=== PATIENT | male | born 1945 | race Caucasian/White ===

== ENCOUNTER 2016-08-22 15:44 | Inpatient (IN) | payer OTHER, MEDICARE ==
[~2016-08-22] VITALS: Ht 175.3 cm; Wt 81.0 kg
[2016-08-22] VITALS (8 sets, daily range): BP systolic 119–185; BP diastolic 61–105; PULSE 80–110; RESP 16–18; TEMP 97.6–99; O2SAT 90–98
--- NOTE | 2016-08-22 17:28 | PD ---
HPI Chief Complaint: General Weakness Time Seen by Provider: 17:11 Travel History International Travel<30 days: No Contact w/Intl Traveler<30days: No Traveled to known affect area: No History of Present Illness HPI 71-year-old male with history of hypertension, hypercholesterolemia, here [facility] evaluation [facility] generalized weakness and shortness of breath. The patient reports that when he woke up this morning he had symptoms of not feeling well, generalized weakness, and feeling short of breath. He states that he checked his oxygen saturation at home and reports that it was 84%. Patient also felt a little bit off balance. Here in the emergency department he feels well. No chest pain or dyspnea. No fevers or recent illness. No abdominal pain, nausea, or vomiting. No paresthesias or motor deficits. No known history of CAD. No history of DVT or PE. PFSH Past Medical History Hx Anticoagulant Therapy: Yes (81MG ASPIRIN) Arthritis: Yes Asthma: No Autoimmune Disease: No Blood Disorders: No Anxiety: No Depression: No Heart Rhythm Problems: No Cancer: No Cardiovascular Problems: Yes ("TISSUE VALVE") High Cholesterol: Yes Chemotherapy: No (CLL) Chest Pain: No Congestive Heart Failure: No COPD: No Cerebrovascular Accident: No Diabetes: Yes Patient Takes Glucophage: No Diminished Hearing: No Gastrointestinal Disorders: No GERD: No Glaucoma: No Headaches: No Hepatitis: No Hiatal Hernia: No Hypertension: Yes Kidney Stones: No Musculoskeletal: Yes Neurologic: No Psychiatric: No Respiratory: No Myocardial Infarction: No Radiation Therapy: No Renal Failure: No Seizures: No Sleep Apnea: No Thyroid Disease: No Ulcer: No Tetanus Vaccination: < 5 Years Influenza Vaccination: Yes Past Surgical History Abdominal Surgery: Yes (appendectomy) AICD: No Appendectomy: Yes Cardiac Surgery: Yes (VALVE REPLACEMENT) Ear Surgery: No Endocrine Surgery: No Eye Surgery: No Genitourinary Surgery: No Gynecologic Surgery: No Neurologic Surgery: No Oral Surgery: No Pacemaker: No Thoracic Surgery: No Other Surgery: Yes Social History Alcohol Use: No Tobacco Use: No Substance Use: No Allergies-Medications (Allergen,Severity, Reaction): Coded Allergies: No Known Allergies (Verified , 08/22/16) Review of Systems Except as stated in HPI: all other systems reviewed are Neg Physical Exam Narrative GENERAL: Well-developed, well-nourished, comfortable, no acute distress. SKIN: Focused skin assessment warm/dry. No rash. No pallor. HEAD: Atraumatic. Normocephalic. EYES: Pupils equal and round. No scleral icterus. No injection or drainage. ENT: Mucous membranes pink and moist. NECK: Trachea midline. No JVD. CARDIOVASCULAR: Regular rate and rhythm. RESPIRATORY: No accessory muscle use. Clear to auscultation. Breath sounds equal bilaterally. GASTROINTESTINAL: Abdomen soft, non-tender, nondistended. MUSCULOSKELETAL: No obvious deformities. No clubbing. No cyanosis. No edema. NEUROLOGICAL: Awake and alert. No obvious cranial nerve deficits. No focal deficits. Normal fdjvas-[id number] test bilaterally. No pronator drift. PSYCHIATRIC: Appropriate mood and affect; insight and judgment normal. Data Data Last Documented VS Vital Signs Date Time Temp Pulse Resp B/P Pulse Ox O2 Delivery O2 Flow Rate FiO2 08/22/16 17:24 83 16 167/91 94 Nasal Cannula 2 08/22/16 15:48 98.5 Orders Electrocardiogram (08/22/16 17:22) Ckmb (Isoenzyme) Profile (08/22/16 17:22) Complete Blood Count With Diff (08/22/16 17:22) Comprehensive Metabolic Panel (08/22/16 17:22) Magnesium (Mg) (08/22/16 17:22) Prothrombin Time / Inr (Pt) (08/22/16 17:22) Act Partial Throm Time (Ptt) (08/22/16 17:22) Troponin I (08/22/16 17:22) Chest, Single Ap (08/22/16 17:22) Ecg Monitoring (08/22/16 17:22) Iv Access Insert/Monitor (08/22/16 17:22) Oximetry (08/22/16 17:22) Sodium Chloride 0.9% Flush (Ns Flush) (08/22/16 17:30) Ct Brain W/O Iv Contrast(Rout) (08/22/16 ) Urinalysis - C+S If Indicated (08/22/16 17:27) Blood Culture (08/22/16 19:48) Ceftriaxone Inj (Rocephin Inj) (08/22/16 20:00) Azithromycin Inj (Zithromax Inj) (08/22/16 20:00) Labs Laboratory Tests Test 08/22/16 18:30 White Blood Count 16.9 TH/MM3 Red Blood Count 4.55 MIL/MM3 Hemoglobin 15.1 GM/DL Hematocrit 43.3 % Mean Corpuscular Volume 95.2 FL Mean Corpuscular Hemoglobin 33.1 PG Mean Corpuscular Hemoglobin 34.8 % Concent Red Cell Distribution Width 13.6 % Platelet Count 124 TH/MM3 Mean Platelet Volume 9.7 FL Neutrophils (%) (Auto) 36.9 % Lymphocytes (%) (Auto) 59.6 % Monocytes (%) (Auto) 0.6 % Eosinophils (%) (Auto) 1.9 % Basophils (%) (Auto) 1.0 % Neutrophils # (Auto) 6.2 TH/MM3 Lymphocytes # (Auto) 10.1 TH/MM3 Monocytes # (Auto) 0.1 TH/MM3 Eosinophils # (Auto) 0.3 TH/MM3 Basophils # (Auto) 0.2 TH/MM3 CBC Comment AUTO DIFF Differential Total Cells 100 Counted Neutrophils % (Manual) 45 % Band Neutrophils % 4 % Lymphocytes % 47 % Monocytes % 4 % Neutrophils # (Manual) 8.3 TH/MM3 Differential Comment FINAL DIFF MANUAL Platelet Estimate LOW Platelet Morphology Comment NORMAL Red Cell Morphology Comment NORMAL Prothrombin Time 10.7 SEC Prothromb Time International 1.0 RATIO Ratio Activated Partial 26.5 SEC Thromboplast Time Sodium Level 133 MEQ/L Potassium Level 4.0 MEQ/L Chloride Level 97 MEQ/L Carbon Dioxide Level 22.3 MEQ/L Anion Gap 14 MEQ/L Blood Urea Nitrogen 25 MG/DL Creatinine 1.27 MG/DL Estimat Glomerular Filtration 56 ML/MIN Rate Random Glucose 129 MG/DL Calcium Level 8.8 MG/DL Magnesium Level 1.7 MG/DL Total Bilirubin 2.3 MG/DL Aspartate Amino Transf 24 U/L (AST/SGOT) Alanine Aminotransferase 19 U/L (ALT/SGPT) Alkaline Phosphatase 65 U/L Total Creatine Kinase 71 U/L Troponin I LESS THAN 0.02 NG/ML Total Protein 7.9 GM/DL Albumin 3.8 GM/DL [facility] Medical Decision Making Medical Screen Exam Complete: Yes Emergency Medical Condition: Yes Interpretation(s) EKG: Ectopic atrial rhythm, rate 76, left axis deviation, normal intervals, no acute ischemic abnormality. Differential Diagnosis Metabolic abnormality, intracranial abnormality, anemia, pneumonia, pneumothorax , peritonitis, PE, UTI Narrative Course Initial vital signs show heart rate 110, blood pressure 185/105, pulse ox 97% on room air, oral temp of 98.5F. CBC shows WBC 16.9, hemoglobin 15.1, hematocrit 43.3, platelets 124, neutrophils 36.9%, lymphocytes 59.6%. Band neutrophils 4%. CMP is remarkable for sodium 133, chloride 97, BUN 25, creatinine 1.27, GFR 56, T bili 2.3, otherwise essentially unremarkable. Cardiac enzymes are negative. CT head: No acute intracranial abnormality. Paranasal sinus disease, primarily right sided. Chest x-ray: CONCLUSION: 1. Chronic appearing interstitial changes with possible superimposed infiltrate at the right base. Patient was made aware of all findings. Although he is resting comfortably, his O2 saturation is 90% on 3 L nasal cannula while at rest. Given leukocytosis with findings of pneumonia and hypoxia on clinical exam, patient will be admitted for treatment and evaluation of pneumonia and hypoxia. Patient is amenable to this plan. Case discussed with hospitalist Dr. Yuan who will admit the patient to her service. Diagnosis Primary Impression: Pneumonia Qualified Code: J18.1 - Pneumonia of right lower lobe due to infectious organism Additional Impression: Hypoxia Admitting Information Admitting Physician Requests: Admit El Celestin MD Aug 22, 2016 17:28
[2016-08-22] MEDS ORDERED: SODIUM CHLORIDE 0.9% FLUSH 10 ML FLUSH IVF PRN (17:30)
--- NOTE | 2016-08-22 17:54 | RADRPT ---
EXAM DATE/TIME: 08/22/2016 17:35 [facility] COMPARISON: No previous studies available for comparison. INDICATIONS : Low oxygen saturation [facility] by [facility]. MEDICAL HISTORY : Cardiovascular disease. SURGICAL HISTORY : valve placement ENCOUNTER: Initial ACUITY: 1 day PAIN SCORE: Non-responsive. LOCATION: Bilateral upper chest FINDINGS: The heart is enlarged. The patient is post median sternotomy. There is interstitial change with possi ble superimposed infiltrate or edema at the right lung base. The visualized bony structures are intac t. CONCLUSION: 1. Chronic appearing interstitial changes with possible superimposed infiltrate at the right base. Popeye Palacio MD on August 22, 2016 at 17:51 Board Certified Radiologist. This report was verified electronically.
--- NOTE | 2016-08-22 18:19 | RADRPT ---
EXAM DATE/TIME: 08/22/2016 17:50 [facility] COMPARISON: No previous studies available for comparison. INDICATIONS : Dizziness and hypoxia today. RADIATION DOSE: 52.90 CTDIvol (mGy) MEDICAL HISTORY : Hypertension. Cardiovascular disease diabetes SURGICAL HISTORY : None. ENCOUNTER: Initial ACUITY: 1 day PAIN SCALE: 0/10 LOCATION: Bilateral head TECHNIQUE: Multiple contiguous axial images were obtained of the head. Using automated exposure control and adj ustment of the mA and/or kV according to patient size, radiation dose was kept as low as reasonably a chievable to obtain optimal diagnostic quality images. FINDINGS: CEREBRUM: The ventricles are normal for age. No evidence of midline shift, mass lesion, hemorrhage or acute in farction. No extra-axial fluid collections are seen. POSTERIOR FOSSA: The cerebellum and brainstem are intact. The 4th ventricle is midline. The cerebellopontine angle i s unremarkable. EXTRACRANIAL: The visualized portion of the orbits is intact. There is mucoperiosteal thickening of the visualized paranasal sinuses, primarily right frontal, right ethmoid and right maxillary. SKULL: The calvaria is intact. No evidence of skull fracture. CONCLUSION: No acute intracranial abnormality. Paranasal sinus disease, primarily right-sided. Arcenio Bergeron MD on August 22, 2016 at 18:16 Board Certified Radiologist. This report was verified electronically.
[2016-08-22 19:01] LABS: AUTOMATED NEUTROPHIL # 6.2 TH/MM3 (1.8-7.7); BASOPHIL # 0.2 TH/MM3 (0-0.2); EOSINOPHIL # 0.3 TH/MM3 (0-0.4); EOSINOPHIL % 1.9 % (0.0-4.0); HEMATOCRIT 43.3 % (39.0-51.0); LYMPH % 59.6 % (9.0-44.0); LYMPHOCYTE # 10.1 TH/MM3 (1.0-4.8); MEAN CELL VOLUME 95.2 FL (80.0-100.0); MEAN CORPUSCULAR HEMOGLOBIN 33.1 PG (27.0-34.0); MEAN CORPUSCULAR HGB CONC 34.8 % (32.0-36.0); MONO % 0.6 % (0.0-8.0); NEUT % 36.9 % (16.0-70.0); PLATELET COUNT 124 TH/MM3 (150-450); RED BLOOD COUNT 4.55 MIL/MM3 (4.50-5.90); RED CELL DISTRIBUTION WIDTH 13.6 % (11.6-17.2); WHITE BLOOD COUNT 16.9 TH/MM3 (4.0-11.0)
[2016-08-22 19:07] LABS: HEMO FLAGS AUTO DIFF
[2016-08-22 19:16] LABS: ANION GAP 14 MEQ/L (5-15); AST (GOT) 24 U/L (15-37); BICARBONATE 22.3 MEQ/L (21.0-32.0); BLOOD UREA NITROGEN 25 MG/DL (7-18); CHLORIDE 97 MEQ/L (98-107); GLOMERULAR FILTRATION RATE 56 ML/MIN (>89); MAGNESIUM 1.7 MG/DL (1.5-2.5); SODIUM (NA) 133 MEQ/L (136-145)
[2016-08-22 19:23] LABS: ALKALINE PHOSPHATASE 65 U/L (45-117); ALT (GPT) 19 U/L (12-78); TOTAL BILIRUBIN ADULT 2.3 MG/DL (0.2-1.0)
[2016-08-22 19:36] LABS: APTT (PATIENT) 26.5 SEC (24.3-30.1); PROTHROMBIN TIME - PATIENT 10.7 SEC (9.8-11.6)
[2016-08-22 19:40] LABS: BANDS 4 % (0-6); NEUTROPHIL # MANUAL DIFF 8.3 TH/MM3 (1.8-7.7); PLATELET ESTIMATE SMEAR LOW (NORMAL); PLATELET MORPHOLOGY NORMAL (NORMAL); POLYS (SEG NEUTROPHILS) 45 % (16-70); SCAN/DIFF FINAL DIFF MANUAL; WBC DIFF SAMPLE 100
[2016-08-22 19:48] LABS: CREATINE KINASE 71 U/L (39-308)
[2016-08-22] MEDS ORDERED: NALOXONE HCL 0.4 MG/ML AMP IV PRN (20:00)
[2016-08-22] MEDS ORDERED: AZITHROMYCIN INJ 500 MG in SODIUM CHLOR 0.9% 250 ML INJ 250 ML IV ONE (20:00)
[2016-08-22] MEDS ORDERED: cefTRIAXone INJ 1,000 MG in SODIUM CHLORIDE 0.9% INJ 100 ML IV ONE (20:00)
[2016-08-22] MEDS ORDERED: SODIUM CHLORIDE 0.9% FLUSH 10 ML FLUSH IV FLUSH PRN (20:00)
[2016-08-22 20:29] LABS: BLOOD, URINE NEG (NEG); GLUCOSE,URINE NEG (NEG); KETONE, URINE 10 mg/dL (NEG); NITRITE,URINE NEG (NEG); URINE COLOR LIGHT-YELLOW (YELLW/STRAW)
[2016-08-22 20:32] LABS: COMMENT (UR) CULT NOT INDICATED; CULTURE IF INDICATED CULT NOT INDICATED
[2016-08-22] MEDS: SODIUM CHLORIDE 0.9% FLUSH 10 ML FLUSH IV FLUSH SCH (21:00)
--- NOTE | 2016-08-22 21:57 | EKG ---
Date Performed: 08/22/2016 Time Performed: 17:28:22 PTAGE: 71 years EKG: ECTOPIC ATRIAL RHYTHM MARKED LEFT AXIS DEVIATION ABNORMAL ECG NO SIGNIFICANT CHANGE FROM [place] IOR ELECTROCARDIOGRAM. PREVIOUS TRACING : 08/22/2016 17.27 DOCTOR: Jaylan Polanco Interpretating Date/Time 08/24/2016 07:07:21
--- NOTE | 2016-08-22 22:55 | HHI.HP ---
[facility] Admission Diagnosis pneumonia, hypoxia Diagnoses: (1) Pneumonia (2) Hypoxia Chief Complaint: shortness of breath Travel History International Travel<30 Days: No Contact w/Intl Traveler <30 Da: No Traveled to Known Affected Are: No History of Present Illness Written by Daphne Fonseca, acting as scribe for Dr. Yuan on 08/22/16 at 22:54. Mr. Otto is a 71 year-old male with a history of CLL, hypertension, mitral valve replacement - bovine, hyperlipidemia, diabetes mellitus, arthritis, and renal disease who presented to the emergency room on 08/22/2016 on recommendation of [place] clinic for evaluation of generalized weakness and shortness of breath. On chest x-ray in the ER he was noted to have infiltrate at the right base. Pulse oximetry at home showed 84% oxygen saturation; saturation was 90% on 3 L of supplemental oxygen in the ER as noted by Dr. Celestin. Patient states that he was short of breath this morning; tested oxygen saturation with partner's oximeter (partner has COPD) and it was 84% on room air. Denies cough and states SOB only started today. Denies fever, night sweats, extremity swelling, black or bloody stools, diarrhea , and hematuria (urine is orange - reports related to chronic kidney disease). Also states this morning that he was slightly imbalanced and chest was slightly uncomfortable/tight. No recent long plane or car rides. 22 years of exposure of second hand smoke exposure; Stopped getting second hand smoke 12 years ago. Reports a history of controlled diabetes mellitus, artificial mitral valve - bovine - 2003 Denies COPD/breathing problems, CAD, CHF, liver problems like hepatitis, PE, DVT , CVA, seizures, thyroid problems, cancer, and prostate problems. Current partner is HIV +, patient states he's tested negative twice Echocardiogram with patient from [place] - personally reviewed report dated 05/26/16: mild mitral regurgitation; severely dilated right atrium; EF 60-65%. . Review of Systems Except as stated in HPI: all other systems reviewed are Neg Past Family Social History Past Medical History Hypertension Hyperlipidemia Mitral valve replacement - 2003 - bovine A-fib after MVR - converted with cardioversion Diabetes mellitus Arthritis Renal disease CLL . Past Surgical History Appendectomy 1968 Mitral valve replacement - bovine - 2003 . Reported Medications Metformin 1000 twice daily Glipizide 5 mg (?) BID Simvastatin 1/2 pill daily Metoprolol 1/2 pill BID Lisinopril 1/2 pill in a.m. . Allergies: Coded Allergies: No Known Allergies (Verified , 08/22/16) Active Ordered Medications Current Medications Sodium Chloride 2 ml 2 ml UNSCH PRN IVF FLUSH AFTER USING IV ACCESS; Start 02/26 at 17:30; Stop 08/22/16 at 20:07; Status DC Ceftriaxone Sodium 1000 mg/ Sodium Chloride 100 ml @ 200 mls/hr ONCE ONCE IV Last administered on 08/22/16 20:00; Start 08/22/16 at 20:00; Stop 08/22/16 at 20:29; Status DC Azithromycin/ Sodium Chloride (Zithromax Inj/ NS 250 ml Inj) 250 ml @ 250 mls/ hr ONCE ONCE IV Last administered on 08/22/16 21:48; Start 08/22/16 at 20:00 ; Stop 08/22/16 at 20:59; Status DC Sodium Chloride (NS Flush) 2 ml UNSCH PRN IV FLUSH FLUSH AFTER USING IV ACCESS ; Start 08/22/16 at 20:00 Sodium Chloride (NS Flush) 2 ml BID IV FLUSH ; Start 08/22/16 at 21:00 Naloxone HCl (Narcan Inj) 0.4 mg UNSCH PRN IV SEE LABEL COMMENTS; Start at 20:00 . Family History Mother from dementia; had diabetes mellitus Father with Alzheimer's and heart problems . Social History Tobacco: denies smoking; 22 years of exposure of second hand smoke exposure; Stopped getting second hand smoke 12 years ago. Alcohol: denies Illicit Drugs: denies . Physical Exam Vital Signs Vital Signs Date Time Temp Pulse Resp B/P Pulse Ox O2 Delivery O2 Flow Rate FiO2 08/22/16 22:37 97.6 97 18 138/65 94 08/22/16 21:00 80 16 119/61 94 Nasal Cannula 2 08/22/16 20:15 96 08/22/16 20:15 99.0 97 18 136/89 93 Nasal Cannula 3 08/22/16 20:00 98.7 94 16 136/89 90 Nasal Cannula 2 08/22/16 17:24 83 16 167/91 94 Nasal Cannula 2 08/22/16 16:09 95 16 144/75 98 Room Air 08/22/16 15:48 98.5 110 16 185/105 97 Physical Exam GENERAL: This is a well-nourished, well-developed patient, in no apparent distress. SKIN: No rashes, ecchymoses or lesions. Cool and dry. HEAD: Atraumatic. Normocephalic. EYES: No scleral icterus. No injection or drainage. ENT: Nose without bleeding, purulent drainage. NECK: Trachea midline. No JVD or lymphadenopathy. CARDIOVASCULAR: Regular rate and rhythm without gallops or rubs. Heart murmur auscultated. RESPIRATORY: Light crepitations throughout lung azul. Breath sounds equal bilaterally. No wheezes or rhonchi. GASTROINTESTINAL: Abdomen soft, non-tender, nondistended. No guarding. MUSCULOSKELETAL: Extremities without clubbing, cyanosis, or edema. No calf tenderness. NEUROLOGICAL: Awake and alert. Motor and sensory grossly within normal limits. Normal speech. . Laboratory Laboratory Tests Test 08/22/16 08/22/16 18:30 19:55 White Blood Count 16.9 Red Blood Count 4.55 Hemoglobin 15.1 Hematocrit 43.3 Mean Corpuscular Volume 95.2 Mean Corpuscular Hemoglobin 33.1 Mean Corpuscular Hemoglobin 34.8 Concent Red Cell Distribution Width 13.6 Platelet Count 124 Mean Platelet Volume 9.7 Neutrophils (%) (Auto) 36.9 Lymphocytes (%) (Auto) 59.6 Monocytes (%) (Auto) 0.6 Eosinophils (%) (Auto) 1.9 Basophils (%) (Auto) 1.0 Neutrophils # (Auto) 6.2 Lymphocytes # (Auto) 10.1 Monocytes # (Auto) 0.1 Eosinophils # (Auto) 0.3 Basophils # (Auto) 0.2 CBC Comment AUTO DIFF Differential Total Cells 100 Counted Neutrophils % (Manual) 45 Band Neutrophils % 4 Lymphocytes % 47 Monocytes % 4 Neutrophils # (Manual) 8.3 Differential Comment FINAL DIFF MANUAL Platelet Estimate LOW Platelet Morphology Comment NORMAL Red Cell Morphology Comment NORMAL Prothrombin Time 10.7 Prothromb Time International 1.0 Ratio Activated Partial 26.5 Thromboplast Time Sodium Level 133 Potassium Level 4.0 Chloride Level 97 Carbon Dioxide Level 22.3 Anion Gap 14 Blood Urea Nitrogen 25 Creatinine 1.27 Estimat Glomerular Filtration 56 Rate Random Glucose 129 Calcium Level 8.8 Magnesium Level 1.7 Total Bilirubin 2.3 Aspartate Amino Transf 24 (AST/SGOT) Alanine Aminotransferase 19 (ALT/SGPT) Alkaline Phosphatase 65 Total Creatine Kinase 71 Troponin I LESS THAN 0.02 Total Protein 7.9 Albumin 3.8 Urine Color LIGHT-YELLOW Urine Turbidity CLEAR Urine pH 5.0 Urine Specific [place] 1.011 Urine Protein TRACE Urine Glucose (UA) NEG Urine Ketones 10 Urine Occult Blood NEG Urine Nitrite NEG Urine Bilirubin NEG Urine Urobilinogen LESS THAN 2.0 Urine Leukocyte Esterase NEG Urine RBC 1 Urine WBC 1 Microscopic Urinalysis Comment CULT NOT INDICATED Date/Time Procedure Status Source Growth 08/22/16 21:25 Aerobic Blood Culture Received Blood Peripheral Pending 08/22/16 21:25 Anaerobic Blood Culture Received Blood Peripheral Pending Result Diagram: 08/22/16 1830 08/22/16 1830 Imaging Last Impressions Chest X-Ray 08/22/16 1722 Signed Impressions: Service Date/Time: Monday, August 22, 2016 17:35 - CONCLUSION: 1. Chronic appearing interstitial changes with possible superimposed infiltrate at the right base. Popeye Palacio MD Head CT 08/22/16 0000 Signed Impressions: Service Date/Time: Monday, August 22, 2016 17:50 - CONCLUSION: No acute intracranial abnormality. Paranasal sinus disease, primarily right-sided. Arcenio Bergeron MD . Assessment and Plan Problem List: (1) Pneumonia ICD Code: J18.9 Status: Acute (2) Hypoxia ICD Code: R09.02 Status: Acute (3) CLL (chronic lymphocytic leukemia) ICD Code: C91.10 Status: Chronic Assessment and Plan Mr. Otto is a 71 year-old male who presented to the emergency room on 08/22/16 for evaluation of generalized weakness and shortness of breath. On chest x-ray in the ER he was noted to have infiltrate at the right base. Pulse oximetry at home showed 84% oxygen saturation; saturation was 90% on 3 L of supplemental oxygen in the ER as noted by Dr. Celestin. Hypoxic respiratory failure with pneumonia - Levaquin 750 mg IV q24h - Check serial cardiac enzymes and EKGs to rule out ACS - Consult physical therapy to prevent further debility - Continuous cardiac telemetry to monitor for arrhythmias - Monitor vital signs every 4 hours - Consult pulmonology - appreciate assistance with interstitial lung disease, newly diagnosed CLL with leukocytosis - most likely secondary to pneumonia - WBC 16.9 (was 12 on last [place] blood work reviewed in room during exam) with elevated lymphocytes secondary to CLL - Recheck CBC in a.m. and follow trends DVT prophylaxis - Lovenox 40 mg subq q24 hours of note, Echocardiogram with patient from [place] - personally reviewed report dated 05/26/16: mild mitral regurgitation; severely dilated right atrium; EF 60- 65%. . Discussed Condition With ER physician, patient, RN . Physician Certification 2 Midnight Certification Type: Admission for Inpatient Services Order for Inpatient Services The services are ordered in accordance with Medicare regulations or non- Medicare payer requirements, as applicable. In the case of services not specified as inpatient-only, they are appropriately provided as inpatient services in accordance with the 2-midnight benchmark. Estimated LOS (days): 3 days is the estimated time the patient will need to remain in the hospital, assuming treatment plan goals are met and no additional complications. Post-Hospital Plan: Home Problem Qualifiers (1) Pneumonia: Qualified Code: J18.1 - Pneumonia of right lower lobe due to infectious organism Daphne Fonseca Aug 22, 2016 22:55
[2016-08-23] MEDS ORDERED: DEXTROSE 50% IN WATER 50 ML VIAL(D50) IV PRN (02:00)
[2016-08-23] MEDS ORDERED: GLUCAGON 1 MG/ML VIAL OTHER PRN (02:00)
[2016-08-23] MEDS ORDERED: METF1000 PO (02:55)
[2016-08-23] MEDS ORDERED: PILL SPLITTER OTHER PRN (04:15)
[2016-08-23 04:46] VITALS: BP 106/62; PULSE 90; RESP 18; TEMP 96.6; O2SAT 92
[2016-08-23] MEDS: INSULIN ASPART SUPPLEMENTAL SCALE SQ SCH ×4 (05:24→20:48)
[2016-08-23 06:56] LABS: AUTOMATED NEUTROPHIL # 4.4 TH/MM3 (1.8-7.7); BASOPHIL % 0.2 % (0.0-2.0); EOSINOPHIL % 0.3 % (0.0-4.0); HEMATOCRIT 37.2 % (39.0-51.0); LYMPH % 58.1 % (9.0-44.0); LYMPHOCYTE # 6.3 TH/MM3 (1.0-4.8); MEAN CORPUSCULAR HGB CONC 33.4 % (32.0-36.0); MONO % 1.2 % (0.0-8.0); NEUT % 40.2 % (16.0-70.0); PLATELET COUNT 113 TH/MM3 (150-450); RED BLOOD COUNT 3.87 MIL/MM3 (4.50-5.90); RED CELL DISTRIBUTION WIDTH 13.6 % (11.6-17.2); WHITE BLOOD COUNT 10.9 TH/MM3 (4.0-11.0)
[2016-08-23 06:57] LABS: HEMO FLAGS AUTO DIFF
[2016-08-23 07:15] LABS: BICARBONATE 25.9 MEQ/L (21.0-32.0); POTASSIUM 3.7 MEQ/L (3.5-5.1)
--- NOTE | 2016-08-23 07:51 | EKG ---
Date Performed: 08/23/2016 Time Performed: 05:41:46 PTAGE: 71 years EKG: Possible ectopic atrial rhythm MARKED LEFT AXIS DEVIATION ABNORMAL ECG NO SIGNIFICANT GOMES E FROM PRIOR ELECTROCARDIOGRAM. PREVIOUS TRACING : 08/23/2016 01.07 DOCTOR: Jaylan Polanco Interpretating Date/Time 08/23/2016 07:49:30
--- NOTE | 2016-08-23 07:52 | EKG ---
Date Performed: 08/23/2016 Time Performed: 01:07:51 PTAGE: 71 years EKG: Ectopic atrial rhythm MARKED LEFT AXIS DEVIATION ABNORMAL ECG NO SIGNIFICANT CHANGE FROM [place] IOR ELECTROCARDIOGRAM. PREVIOUS TRACING : 08/22/2016 17.28 DOCTOR: Jaylan Polanco Interpretating Date/Time 08/23/2016 07:52:25
[2016-08-23 08:00] VITALS: BP 120/66; PULSE 84; RESP 20; TEMP 98.3; O2SAT 94
[2016-08-23] MEDS: LISINOPRIL 5 MG TAB PO SCH (08:20)
[2016-08-23] MEDS: LEVOFLOXACIN 750 MG PREMIX INJ 150 ML IV SCH (08:20)
[2016-08-23] MEDS: METOPROLOL TARTRATE 25 MG TAB PO SCH ×2 (08:21→20:44)
[2016-08-23] MEDS: SODIUM CHLORIDE 0.9% FLUSH 10 ML FLUSH IV FLUSH SCH ×2 (08:21→20:48)
[2016-08-23] MEDS: ENOXAPARIN SODIUM 40 MG/0.4 ML SYRINGE SQ SCH (08:21)
[2016-08-23 08:54] LABS: ATYPICAL LYMPHOCYTES 13 % (0-0); BANDS 5 % (0-6); EOSINOPHILS 1 % (0-4); NEUTROPHIL # MANUAL DIFF 4.5 TH/MM3 (1.8-7.7); POLYS (SEG NEUTROPHILS) 36 % (16-70); WBC DIFF SAMPLE 100
[2016-08-23 08:55] LABS: PLATELET ESTIMATE SMEAR LOW (NORMAL); PLATELET MORPHOLOGY NORMAL (NORMAL); SCAN/DIFF FINAL DIFF MANUAL; SMUDGE CELLS PRESENT PRESENT
[2016-08-23 12:55] VITALS: BP 108/64; PULSE 81; RESP 20; TEMP 97.8; O2SAT 97
--- NOTE | 2016-08-23 14:14 | HHI.PR ---
Subjective Remarks patient very active, sputum - minimal whitish, no fever or chills non smoker presented with acute shortness of breath- hypoxemic on presentation non smoker Objective Vitals Vital Signs Date Time Temp Pulse Resp B/P Pulse Ox O2 Delivery O2 Flow Rate FiO2 08/23/16 12:55 97.8 81 20 108/64 97 08/23/16 08:00 98.3 84 20 120/66 94 08/23/16 04:46 96.6 90 18 106/62 92 08/22/16 23:25 103 08/22/16 22:37 97.6 97 18 138/65 94 08/22/16 21:00 80 16 119/61 94 Nasal Cannula 2 08/22/16 20:15 96 08/22/16 20:15 99.0 97 18 136/89 93 Nasal Cannula 3 08/22/16 20:00 98.7 94 16 136/89 90 Nasal Cannula 2 08/22/16 17:24 83 16 167/91 94 Nasal Cannula 2 08/22/16 16:09 95 16 144/75 98 Room Air 08/22/16 15:48 98.5 110 16 185/105 97 I/O 08/22/16 08/22/16 08/22/16 08/23/16 08/23/16 08/23/16 07:00 15:00 23:00 07:00 15:00 23:00 Intake Total 280 ml Balance 280 ml Intake IV Total 280 ml Result Diagram: 08/23/16 0626 08/23/16 0626 Imaging Last Impressions Chest X-Ray 08/22/16 1722 Signed Impressions: Service Date/Time: Monday, August 22, 2016 17:35 - CONCLUSION: 1. Chronic appearing interstitial changes with possible superimposed infiltrate at the right base. Popeye Palacio MD Head CT 08/22/16 0000 Signed Impressions: Service Date/Time: Monday, August 22, 2016 17:50 - CONCLUSION: No acute intracranial abnormality. Paranasal sinus disease, primarily right-sided. Arcenio Bergeron MD Objective Remarks awake and alert, NAD, Sats improved on 2 LNC anciteric fine rales on right base, no wheezes regular rhythm abdomen soft, nontender extremities no edema neuro exam- non focal A/P Problem List: (1) Pneumonia ICD Code: J18.9 Status: Acute (2) Hypoxia ICD Code: R09.02 Status: Acute (3) CLL (chronic lymphocytic leukemia) ICD Code: C91.10 Status: Chronic Assessment and Plan Mr. Otto is a 71 year-old male who presented to the emergency room on 08/22/16 for evaluation of generalized weakness and acute shortness of breath. On chest x -ray with interstitial lung changes and noted to have infiltrate at the right base. Pulse oximetry at home showed 84% oxygen saturation; saturation was 90% on 3 L of supplemental oxygen in the ER as noted by Dr. Celestin. Acute Hypoxic respiratory failure with pneumonia/infiltrate on CXR - Sats 95% at 2LNC- Leukocytosis - Pulmonology consulted with interstitial lung changes- non smoker - Levaquin 750 mg IV q24h - Check serial cardiac enzymes and EKGs - unreamrkabel - Consult physical therapy to prevent further debility - Continuous cardiac telemetry to monitor for arrhythmias - Monitor vital signs every 4 hours - will get stat D dimer- if + proceed with CTA- due to acuity of SOB CLL with acute leukocytosis - - WBC 16.9 (was 12 on last [place] blood work reviewed in room during exam) with elevated lymphocytes secondary to CLL - trended down on antibiotics Acute [place] injury- gentle hydration. ff BMP - History of MVR- Echocardiogram with patient from [place] - personally reviewed report dated 05/26/16: mild mitral regurgitation; severely dilated right atrium; EF 60-65%. DVT prophylaxis - Lovenox 40 mg subq q24 hours . Problem Qualifiers (1) Pneumonia: Qualified Code: J18.1 - Pneumonia of right lower lobe due to infectious organism Jie Lombardi MD Aug 23, 2016 14:14
[2016-08-23] MEDS: SODIUM CHLOR 0.9% 1000 ML INJ 1,000 ML IV SCH (15:00)
[2016-08-23 16:49] VITALS: BP 128/62; PULSE 94; RESP 20; TEMP 99.1; O2SAT 97
--- NOTE | 2016-08-23 19:32 | MB ---
cc: SAUL TAY DATE OF CONSULTATION 08/23/[address] Yuan REASON FOR CONSULTATION Shortness of breath and lung infiltrate. HISTORY OF PRESENT ILLNESS Mr. Otto is a 71-year-old white male with history of hypertension, mitral valve replacement, CLL, diabetes mellitus. The patient came with one day history of shortness of breath. He says he woke up and he feeling generalized weakness. He checked his oxygen saturation which was 84. He called her [facility] and was told to go to the emergency room and was told to go to the emergency room. The patient was evaluated in the emergency room. He had a chest x-ray done which shows chronic interstitial changes with possible superimposed infiltrate in the lung. His WBC count is 10.9, hemoglobin 12.4, hematocrit 37.2, MCV 96, platelet count 113. Sodium 130, potassium 3.7, chloride 97, CO2 25, BUN 24, creatinine 1.39, glucose 236. Currently he is feeling much better. He is weaned down to room air, saturation is 97. PAST MEDICAL HISTORY 1. History of hypertension, 2. Mitral valve replacement with a bovine valve 3. CLL 4. Diabetes mellitus, 5. Arthritis. 6. Appendectomy MEDICATIONS Currently taking 1. Lovenox 40 mg q. 24-hour 2. Levaquin 750 mg a day 3. Metoprolol 12.5 q 2 hr. 4. Prinivil 2.5 mg daily ALLERGIES NO KNOWN DRUG ALLERGIES. SOCIAL HISTORY He lives with his main partner for the last 36 years. No significant alcohol abuse. 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 FAMILY HISTORY He has two brother and one sister. No children. REVIEW OF SYSTEMS Normally he is up, around and active. Weight is stable. No malignancy. No DVT or pulmonary embolism. No seizure, stroke or epilepsy. PHYSICAL EXAMINATION General: A well-nourished elderly male not in acute distress. VITAL SIGNS: Blood pressure 128/62, heart rate 94, respiration 20, Temperature 99.1 HEENT: Pupils are equal and reactive to light. Oral mucosa and nasal mucosa normal. NECK: Supple. JVP not raised. CHEST: Equal bilaterally. He has rales at the right base. CARDIOVASCULAR: S1, S2 normal. ABDOMEN: Benign. EXTREMITIES: No edema. IMPRESSION 1. Interstitial lung infiltrate. 2. hypoxia, rule out pulmonary embolism. 3. Mitral valve replacement with a bovine valve. 4. Diabetes mellitus 5. Hypertension 6. CLL. PLAN I discussed with the patient. He is going to go for a CTA of the chest which will also evaluate pulmonary embolism as well as interstitial lung disease. I will check his pulmonary function study, blood gas and we will check oxygen walk test to determine the need for home oxygen therapy. Further treatment will depend on the course in the hospital. Thank you, Dr. Yuan, for this consultation. MD JOLLY Donaldson/ /6:51 PM /7:14 PM MTDJaneen
[2016-08-23] MEDS ORDERED: IOHEXOL 350 MG/ML 10 ML VIAL (for RAD DIAG) IV ONE (19:33)
--- NOTE | 2016-08-23 19:47 | RADRPT ---
EXAM DATE/TIME: 08/23/2016 19:17 [place] COMPARISON: CHEST SINGLE AP, August 22, 2016, 17:35. INDICATIONS : Evaluate for embolism. IV CONTRAST: 71 cc Omnipaque 350 (iohexol) IV RADIATION DOSE: 12.59 CTDIvol (mGy) MEDICAL HISTORY : Cardiovascular disease. SURGICAL HISTORY : Mitral valve replacement. ENCOUNTER: Initial ACUITY: 1 day PAIN SCALE: 3/10 LOCATION: Bilateral chest TECHNIQUE: Volumetric scanning of the chest was performed using a pulmonary embolism protocol MIP images were re constructed. Using automated exposure control and adjustment of the mA and/or kV according to patien t size, radiation dose was kept as low as reasonably achievable to obtain optimal diagnostic quality images. FINDINGS: The moderate right and small left pleural effusions are present with dependent consolidation of both bases. There is patchy pneumonia posteriorly in the right upper and lower lobes and to a lesser exten t, right middle and left lower lobe. Some of the right pleural fluid is in the major fissure. No pulmonary embolus. Heart size normal. There is coronary artery calcification, both right and left-sided. Mitral valve prosthesis noted. There is a 18 x 32 mm subcarinal mediastinal lymph node and scattered 1 cm or less lymph nodes e lsewhere in the mediastinum. A few lymph nodes measuring up to 17 mm in size are seen of both oksana. CONCLUSION: 1. No pulmonary embolus. 2. Bilateral pneumonia as above. 3. Moderate right and small left pleural effusions with dependent basilar atelectasis. 4. Upper limits of normal to mildly enlarged mediastinal and bilateral hilar lymph nodes, nonspecific . Arcenio Bergeron MD on August 23, 2016 at 19:42 Board Certified Radiologist. This report was verified electronically.
[2016-08-23 20:22] VITALS: BP 144/77; PULSE 110; RESP 18; TEMP 99.5; O2SAT 91
[2016-08-23 21:15] VITALS: PULSE 111
[2016-08-24] VITALS (8 sets, daily range): BP systolic 104–141; BP diastolic 58–74; PULSE 80–101; RESP 17–20; TEMP 97.6–99.7; O2SAT 92–99
[2016-08-24] MEDS ORDERED: diphenhydrAMINE HCL 50 MG CAP PO ONE
[2016-08-24] MEDS: SODIUM CHLOR 0.9% 1000 ML INJ 1,000 ML IV SCH (02:55)
[2016-08-24] MEDS: INSULIN ASPART SUPPLEMENTAL SCALE SQ SCH ×4 (06:21→20:44)
[2016-08-24] MEDS: ENOXAPARIN SODIUM 40 MG/0.4 ML SYRINGE SQ SCH (08:55)
[2016-08-24] MEDS: SODIUM CHLORIDE 0.9% FLUSH 10 ML FLUSH IV FLUSH SCH ×2 (08:56→20:41)
[2016-08-24] MEDS: LEVOFLOXACIN 750 MG PREMIX INJ 150 ML IV SCH (08:56)
[2016-08-24] MEDS: LISINOPRIL 5 MG TAB PO SCH (08:56)
[2016-08-24] MEDS: METOPROLOL TARTRATE 25 MG TAB PO SCH ×2 (08:56→20:41)
[2016-08-24 11:56] LABS: BICARBONATE 27.2 MEQ/L (21.0-32.0); POTASSIUM 4.3 MEQ/L (3.5-5.1)
--- NOTE | 2016-08-24 16:24 | HHI.PR ---
Subjective Remarks decrease sputum feeling better ambulated around hallways- slowly on 02 no diarreha Objective Vitals Vital Signs Date Time Temp Pulse Resp B/P Pulse Ox O2 Delivery O2 Flow Rate FiO2 08/24/16 12:30 84 08/24/16 12:00 97.6 94 19 110/66 98 08/24/16 09:05 Nasal Cannula 3.00 08/24/16 08:48 95 2.00 08/24/16 08:48 99.0 101 18 141/72 95 08/24/16 05:00 Nasal Cannula 3.00 Humidified 08/24/16 04:00 97.9 99 18 124/72 92 08/24/16 00:27 98.9 95 20 125/74 92 08/23/16 21:15 111 08/23/16 20:22 99.5 110 18 144/77 91 08/23/16 16:49 99.1 94 20 128/62 97 I/O 08/23/16 08/23/16 08/23/16 08/24/16 08/24/16 08/24/16 07:00 15:00 23:00 07:00 15:00 23:00 Intake Total 280 ml 960 ml 600 ml 600 ml 420 ml Output Total 500 ml Balance 280 ml 960 ml 100 ml 600 ml 420 ml Intake Oral 960 ml 600 ml 600 ml IV Total 280 ml 420 ml Output Urine Total 500 ml # Voids 8 3 # Bowel Movements 2 1 1 Result Diagram: 08/23/16 0626 08/24/16 [address] Angiography 08/23/16 0000 Signed Impressions: Service Date/Time: Tuesday, August 23, 2016 19:17 - CONCLUSION: 1. No pulmonary embolus. 2. Bilateral pneumonia as above. 3. Moderate right and small left pleural effusions with dependent basilar atelectasis. 4. Upper limits of normal to mildly enlarged mediastinal and bilateral hilar lymph nodes, nonspecific. Arcenio Bergeron MD Chest X-Ray 08/22/16 1722 Signed Impressions: Service Date/Time: Monday, August 22, 2016 17:35 - CONCLUSION: 1. Chronic appearing interstitial changes with possible superimposed infiltrate at the right base. Popeye Palacio MD Head CT 08/22/16 0000 Signed Impressions: Service Date/Time: Samuel, August 22, 2016 17:50 - CONCLUSION: No acute intracranial abnormality. Paranasal sinus disease, primarily right-sided. Arcenio Bergeron MD Objective Remarks awake and alert, NAD, Sats improved on 2 LNC anicteric no rales no wheezes regular rhythm abdomen soft, nontender extremities no edema neuro exam- non focal A/P Problem List: (1) Pneumonia ICD Code: J18.9 Status: Acute (2) Hypoxia ICD Code: R09.02 Status: Acute (3) CLL (chronic lymphocytic leukemia) ICD Code: C91.10 Status: Chronic Assessment and Plan Mr. Otto is a 71 year-old male who presented to the emergency room on 08/22/16 for evaluation of generalized weakness and acute shortness of breath. On chest x -ray with interstitial lung changes and noted to have infiltrate at the right base. Pulse oximetry at home showed 84% oxygen saturation; saturation was 90% on 3 L of supplemental oxygen in the ER as noted by Dr. Celestin. Acute Hypoxic respiratory failure with pneumonia/infiltrate on CXR - Sats 95% at 2LNC- Leukocytosis - WBC down - Pulmonology consulted with interstitial lung changes- non smoker - Levaquin 750 mg IV q24h- change to po in am if continues to improve - Check serial cardiac enzymes and EKGs - unreamrkabel -physical therapy to prevent further debility - Continuous cardiac telemetry to monitor for arrhythmias - Monitor vital signs every 4 hours - CTA negative for PE CLL with acute leukocytosis - - WBC 16.9 (was 12 on last [place] blood work reviewed in room during exam) with elevated lymphocytes secondary to CLL - trended down on antibiotics Acute KIdney injury- gentle hydration. ff BMP- recgeck in am - History of MVR- Echocardiogram with patient from [place] - personally reviewed report dated 05/26/16: mild mitral regurgitation; severely dilated right atrium; EF 60-65%. DM type 2- elevated readings as OP on Metformin and Glyburide - start Glyburide. states his last A1C was 7 DVT prophylaxis - Lovenox 40 mg subq q24 hours CM consult for DC planning . Problem Qualifiers (1) Pneumonia: Qualified Code: J18.1 - Pneumonia of right lower lobe due to infectious organism Jie Lombardi MD Aug 24, 2016 16:24
--- NOTE | 2016-08-24 18:49 | HHI.PR ---
Subjective Remarks 71 YOWM with SOB.Hypoxia, Int lung infilt CTA No PE, small pl eff, bilat infilt no fever Anxious to go home. Objective Vital Signs Vital Signs Date Time Temp Pulse Resp B/P Pulse Ox O2 Delivery O2 Flow Rate FiO2 08/24/16 16:00 98.6 88 18 104/58 99 08/24/16 12:30 84 08/24/16 12:00 97.6 94 19 110/66 98 08/24/16 09:05 Nasal Cannula 3.00 08/24/16 08:48 95 2.00 08/24/16 08:48 99.0 101 18 141/72 95 08/24/16 05:00 Nasal Cannula 3.00 Humidified 08/24/16 04:00 97.9 99 18 124/72 92 08/24/16 00:27 98.9 95 20 125/74 92 08/23/16 21:15 111 08/23/16 20:22 99.5 110 18 144/77 91 I/O 08/23/16 08/23/16 08/23/16 08/24/16 08/24/16 08/24/16 07:00 15:00 23:00 07:00 15:00 23:00 Intake Total 280 ml 960 ml 600 ml 600 ml 1380 ml Output Total 500 ml Balance 280 ml 960 ml 100 ml 600 ml 1380 ml Intake Oral 960 ml 600 ml 600 ml 960 ml IV Total 280 ml 420 ml Output Urine Total 500 ml # Voids 8 3 4 # Bowel Movements 2 1 1 1 Result Diagram: 08/23/16 0626 08/24/16 1048 Objective Remarks GENERAL: WBWN WM, NAD SKIN: Warm and dry. HEAD: Normocephalic. EYES: No scleral icterus. No injection or drainage. NECK: Supple, trachea midline. No JVD or lymphadenopathy. CARDIOVASCULAR: Regular rate and rhythm without murmurs, gallops, or rubs. RESPIRATORY: Breath sounds equal bilaterally. No accessory muscle use. GASTROINTESTINAL: Abdomen soft, non-tender, nondistended. MUSCULOSKELETAL: No cyanosis, or edema. BACK: Nontender without obvious deformity. No CVA tenderness. A/P Assessment and Plan Bilat infilt Hpoxia, resolved no PE Small Pleural effusion DM PLAN: Cont Abx Wean off 02 Monitor BS Ambulate Giovanni Garcia MD Aug 24, 2016 18:49
[2016-08-24] MEDS: glipiZIDE 5 MG TAB PO SCH (19:05)
[2016-08-25] VITALS: BP 124/67; PULSE 82; RESP 18; TEMP 96.5; O2SAT 96
[2016-08-25] MEDS: SODIUM CHLOR 0.9% 1000 ML INJ 1,000 ML IV SCH (02:55)
[2016-08-25 04:00] VITALS: BP 123/73; PULSE 82; RESP 18; TEMP 96.8; O2SAT 95
[2016-08-25] MEDS: INSULIN ASPART SUPPLEMENTAL SCALE SQ SCH ×3 (05:36→17:40)
[2016-08-25] MEDS: LISINOPRIL 5 MG TAB PO SCH (07:37)
[2016-08-25] MEDS: METOPROLOL TARTRATE 25 MG TAB PO SCH (07:37)
[2016-08-25] MEDS: LEVOFLOXACIN 750 MG PREMIX INJ 150 ML IV SCH (07:37)
[2016-08-25] MEDS: ENOXAPARIN SODIUM 40 MG/0.4 ML SYRINGE SQ SCH (07:39)
[2016-08-25] MEDS: glipiZIDE 5 MG TAB PO SCH ×2 (07:40→17:38)
[2016-08-25] MEDS: SODIUM CHLORIDE 0.9% FLUSH 10 ML FLUSH IV FLUSH SCH (07:41)
[2016-08-25 08:00] VITALS: BP 115/61; PULSE 84; RESP 20; TEMP 96.6; O2SAT 95
[2016-08-25 11:47] LABS: ANION GAP 11 MEQ/L (5-15); BICARBONATE 24.3 MEQ/L (21.0-32.0); BLOOD UREA NITROGEN 23 MG/DL (7-18); CHLORIDE 99 MEQ/L (98-107); GLOMERULAR FILTRATION RATE 58 ML/MIN (>89); POTASSIUM 4.1 MEQ/L (3.5-5.1); SODIUM (NA) 134 MEQ/L (136-145)
[2016-08-25 12:00] VITALS: BP 106/61; PULSE 81; RESP 20; TEMP 96.6; O2SAT 96
[2016-08-25 13:45] VITALS: PULSE 96
[2016-08-25 16:00] VITALS: BP 103/60; PULSE 88; RESP 20; TEMP 97.7; O2SAT 95
[2016-08-25 16:35] LABS: HEMOGLOBIN A1a 1.1 %; HEMOGLOBIN A1b 0.9 %; HEMOGLOBIN Ao 81.6 %; HEMOGLOBIN F 1.2 %; HEMOGLOBIN LA1C 3.2 %; HEMOGLOBIN P3 4.8 %
--- NOTE | 2016-08-25 16:56 | HHI.PR ---
Subjective Remarks patient doing very well no chest pains or shortness of breath minimal cough good sats at room air- ambulating 96% Objective Vitals Vital Signs Date Time Temp Pulse Resp B/P Pulse Ox O2 Delivery O2 Flow Rate FiO2 08/25/16 16:00 97.7 88 20 103/60 95 08/25/16 13:45 96 08/25/16 12:31 96 Room Air 08/25/16 12:00 96.6 81 20 106/61 96 08/25/16 10:36 92 Nasal Cannula 3.00 08/25/16 08:00 96.6 84 20 115/61 95 08/25/16 04:00 96.8 82 18 123/73 95 08/25/16 00:00 96.5 82 18 124/67 96 08/24/16 21:05 Nasal Cannula 3.00 08/24/16 21:05 80 08/24/16 20:00 99.7 92 17 117/68 93 I/O 08/24/16 08/24/16 08/24/16 08/25/16 08/25/16 08/25/16 07:00 15:00 23:00 07:00 15:00 23:00 Intake Total 600 ml 1380 ml 480 ml Balance 600 ml 1380 ml 480 ml Intake Oral 600 ml 960 ml 480 ml IV Total 420 ml # Voids 3 4 # Bowel Movements 1 1 Result Diagram: 08/23/16 0626 08/25/[address] Angiography 08/23/16 0000 Signed Impressions: Service Date/Time: Tuesday, August 23, 2016 19:17 - CONCLUSION: 1. No pulmonary embolus. 2. Bilateral pneumonia as above. 3. Moderate right and small left pleural effusions with dependent basilar atelectasis. 4. Upper limits of normal to mildly enlarged mediastinal and bilateral hilar lymph nodes, nonspecific. Arcenio Bergeron MD Chest X-Ray 08/22/16 1722 Signed Impressions: Service Date/Time: Monday, August 22, 2016 17:35 - CONCLUSION: 1. Chronic appearing interstitial changes with possible superimposed infiltrate at the right base. Popeye Palacio MD Head CT 08/22/16 0000 Signed Impressions: Service Date/Time: Monday, August 22, 2016 17:50 - CONCLUSION: No acute intracranial abnormality. Paranasal sinus disease, primarily right-sided. Arcenio Bergeron MD Objective Remarks awake and alert, NAD, Sats good on room air anicteric no rales no wheezes regular rhythm abdomen soft, nontender extremities no edema neuro exam- non focal A/P Problem List: (1) Pneumonia ICD Code: J18.9 Status: Acute (2) Hypoxia ICD Code: R09.02 Status: Acute (3) CLL (chronic lymphocytic leukemia) ICD Code: C91.10 Status: Chronic Assessment and Plan Mr. Otto is a 71 year-old male who presented to the emergency room on 08/22/16 for evaluation of generalized weakness and acute shortness of breath. On chest x -ray with interstitial lung changes and noted to have infiltrate at the right base. Pulse oximetry at home showed 84% oxygen saturation; saturation was 90% on 3 L of supplemental oxygen in the ER as noted by Dr. Celestin. Acute Hypoxic respiratory failure with pneumonia/infiltrate on CXR - Sats 95% at 2LNC- Leukocytosis - WBC down - Pulmonology consulted with interstitial lung changes- non smoker - Levaquin 750 mg IV q24h- change to po in am if continues to improve complete total 10 days course - Check serial cardiac enzymes and EKGs - unreamrkabel -physical therapy to prevent further debility - CTA negative for PE CLL with acute leukocytosis - - WBC 16.9 (was 12 on last [place] blood work reviewed in room during exam) with elevated lymphocytes secondary to CLL - trended down on antibiotics Acute KIdney injury- improved - History of MVR- Echocardiogram with patient from [place] - personally reviewed report dated 05/26/16: mild mitral regurgitation; severely dilated right atrium; EF 60-65%. DM type 2- elevated readings as OP on Metformin and Glyburide - start Glyburide. states his last A1C was 7 ff with PCP- Dr. Brendon Saini [place] home toay . Problem Qualifiers (1) Pneumonia: Qualified Code: J18.1 - Pneumonia of right lower lobe due to infectious organism Jie Lombardi MD Aug 25, 2016 16:56
[2016-08-25] MEDS ORDERED: LEVA750T9 PO (17:07)
[2016-08-25] MEDS ORDERED: GLIP5 PO (17:07)
[2016-08-25] MEDS ORDERED: METO25TA3 PO (17:07)
[2016-08-25] MEDS ORDERED: LISI-519 PO (17:07)
--- NOTE | 2016-08-25 18:17 | HHI.PR ---
Subjective Remarks 71 YOWM with SOB.Hypoxia, Int lung infilt CTA No PE, small pl eff, bilat infilt no fever Ambulates denies sob Objective Vital Signs Vital Signs Date Time Temp Pulse Resp B/P Pulse Ox O2 Delivery O2 Flow Rate FiO2 08/25/16 16:00 97.7 88 20 103/60 95 08/25/16 13:45 96 08/25/16 12:31 96 Room Air 08/25/16 12:00 96.6 81 20 106/61 96 08/25/16 10:36 92 Nasal Cannula 3.00 08/25/16 08:00 96.6 84 20 115/61 95 08/25/16 04:00 96.8 82 18 123/73 95 08/25/16 00:00 96.5 82 18 124/67 96 08/24/16 21:05 Nasal Cannula 3.00 08/24/16 21:05 80 08/24/16 20:00 99.7 92 17 117/68 93 I/O 08/24/16 08/24/16 08/24/16 08/25/16 08/25/16 08/25/16 07:00 15:00 23:00 07:00 15:00 23:00 Intake Total 600 ml 1380 ml 480 ml Balance 600 ml 1380 ml 480 ml Intake Oral 600 ml 960 ml 480 ml IV Total 420 ml # Voids 3 4 # Bowel Movements 1 1 Result Diagram: 08/23/16 0626 08/25/16 1011 Objective Remarks GENERAL: WBWN WM, NAD SKIN: Warm and dry. HEAD: Normocephalic. EYES: No scleral icterus. No injection or drainage. NECK: Supple, trachea midline. No JVD or lymphadenopathy. CARDIOVASCULAR: Regular rate and rhythm without murmurs, gallops, or rubs. RESPIRATORY: Breath sounds equal bilaterally. No accessory muscle use. GASTROINTESTINAL: Abdomen soft, non-tender, nondistended. MUSCULOSKELETAL: No cyanosis, or edema. BACK: Nontender without obvious deformity. No CVA tenderness. A/P Assessment and Plan Bilat infilt Hpoxia, resolved no PE Small Pleural effusion DM PLAN: Cont Abx Wean off 02 Monitor BS Ambulate DC plans for home Will FU in office 10 days Giovanni Garcia MD Aug 25, 2016 18:17
[2016-08-26] MEDS ORDERED: glipiZIDE 5 MG TAB PO SCH (08:00)
--- NOTE | 2016-08-30 09:20 | HHI.DS ---
Discharge Summary Admission Date Aug 22, 2016 at 20:01 Discharge Date: Aug 25, 2016 Admitting Diagnosis pneumonia, hypoxia (1) Pneumonia ICD Code: J18.9 Diagnosis: Principal (2) Hypoxia ICD Code: R09.02 Diagnosis: Principal (3) CLL (chronic lymphocytic leukemia) ICD Code: C91.10 Diagnosis: Secondary Procedures none Brief History - From Admission Written by Daphne Fonseca, acting as scribe for Dr. Yuan on 08/22/16 at 22:54. Mr. Otto is a 71 year-old male with a history of CLL, hypertension, mitral valve replacement - bovine, hyperlipidemia, diabetes mellitus, arthritis, and renal disease who presented to the emergency room on 08/22/2016 on recommendation of [place] clinic for evaluation of generalized weakness and shortness of breath. On chest x-ray in the ER he was noted to have infiltrate at the right base. Pulse oximetry at home showed 84% oxygen saturation; saturation was 90% on 3 L of supplemental oxygen in the ER as noted by Dr. Celestin. Patient states that he was short of breath this morning; tested oxygen saturation with partner's oximeter (partner has COPD) and it was 84% on room air. Denies cough and states SOB only started today. Denies fever, night sweats, extremity swelling, black or bloody stools, diarrhea , and hematuria (urine is orange - reports related to chronic kidney disease). Also states this morning that he was slightly imbalanced and chest was slightly uncomfortable/tight. No recent long plane or car rides. 22 years of exposure of second hand smoke exposure; Stopped getting second hand smoke 12 years ago. Reports a history of controlled diabetes mellitus, artificial mitral valve - bovine - 2003 Denies COPD/breathing problems, CAD, CHF, liver problems like hepatitis, PE, DVT , CVA, seizures, thyroid problems, cancer, and prostate problems. Current partner is HIV +, patient states he's tested negative twice Echocardiogram with patient from [place] - personally reviewed report dated 05/26/16: mild mitral regurgitation; severely dilated right atrium; EF 60-65%. . Imaging Last Impressions CT Angiography 08/23/16 0000 Signed Impressions: Service Date/Time: Tuesday, August 23, 2016 19:17 - CONCLUSION: 1. No pulmonary embolus. 2. Bilateral pneumonia as above. 3. Moderate right and small left pleural effusions with dependent basilar atelectasis. 4. Upper limits of normal to mildly enlarged mediastinal and bilateral hilar lymph nodes, nonspecific. Arcenio Bergeorn MD Chest X-Ray 08/22/16 1722 Signed Impressions: Service Date/Time: Monday, August 22, 2016 17:35 - CONCLUSION: 1. Chronic appearing interstitial changes with possible superimposed infiltrate at the right base. Popeye Palacio MD Head CT 08/22/16 0000 Signed Impressions: Service Date/Time: Monday, August 22, 2016 17:50 - CONCLUSION: No acute intracranial abnormality. Paranasal sinus disease, primarily right-sided. Arcenio Bergeron MD PE at Discharge awake and alert, NAD, Sats good on room air anicteric no rales no wheezes regular rhythm abdomen soft, nontender extremities no edema neuro exam- non focal Pt update on day of discharge afebrile, no chest pains or shortness of breath, good sats at room air Hospital Course Mr. Otto is a 71 year-old male who presented to the emergency room on 08/22/16 for evaluation of generalized weakness and acute shortness of breath. On chest x -ray with interstitial lung changes and noted to have infiltrate at the right base. Pulse oximetry at home showed 84% oxygen saturation; saturation was 90% on 3 L of supplemental oxygen in the ER as noted by Dr. Celestin. Acute Hypoxic respiratory failure with pneumonia/infiltrate on CXR - Sats 95% at room air Leukocytosis - WBC down - Pulmonology consulted with interstitial lung changes- non smoker - Levaquin 750 mg IV q24h- change to po in am if continues to improve complete total 10 days course - Check serial cardiac enzymes and EKGs - unremarkable -physical therapy to prevent further debility - CTA negative for PE CLL with acute leukocytosis - - WBC 16.9 (was 12 on last [place] blood work reviewed in room during exam) with elevated lymphocytes secondary to CLL - trended down on antibiotics Acute KIdney injury- improved - History of MVR- Echocardiogram with patient from [place] - personally reviewed report dated 05/26/16: mild mitral regurgitation; severely dilated right atrium; EF 60-65%. DM type 2- elevated readings as OP on Metformin and Glyburide - start Glyburide. states his last A1C was 7 ff with PCP- Dr. Brendon Saini [place] home toay Pt Condition on Discharge: Stable Discharge Disposition: Discharge Home Discharge Time: <= 30 minutes Discharge Instructions DIET: Follow Instructions for: Heart Healthy Diet, Diabetic Diet Speech Therapy-Diet Recommends: Regular Activities you can perform: Weight Bearing as Saira Follow up Referrals: PCP Follow-up - 08/29/16 with [facility] - 08/29/16 with Giovanni Garcia MD New Orders: X-RAY CHEST PA & LAT - 1 Week New Medications: Levofloxacin (Levaquin) 750 Mg Tablet 750 MG PO DAILY PNA Days 7 TAB NS Glipizide (Glucotrol) 5 Mg Tab 5 MG PO BID@08,17 DM Days 30 TAB Lisinopril (Lisinopril) 5 Mg Tab 2.5 MG PO DAILY HTN Days 30 TAB Metoprolol Tartrate (Metoprolol Tartrate) 25 Mg Tab 12.5 MG PO Q12HR HTN Days 30 TAB Continued Medications: Metformin (Metformin) 1,000 Mg Tab 1000 MG PO BIDPC With meals Blood Sugar Management #60 Ref 0 TAB Jie Lombardi MD Aug 30, 2016 09:20
--- NOTE | 2016-08-30 11:56 | RSPPFT ---
DATE OF PROCEDURE: 08/24/16 COMMENTS: Spirometry with FVC of 1.6, FEV1 of 1.1, FEV1/FVC ratio at 73%. A positive and significant response to acutely inhaled bronchodilator noted. IMPRESSION: 1. Moderately severe airways obstruction. 2. Positive and significant response to acutely inhaled bronchodilator.
== END 2016-08-25 18:35 | disposition home or self-care (01) | DRG 193 ==
LOC: NEPD 15:44 → NEDA 19:59 → OBSVTOIN 20:01 → HOCB 22:08
PROVIDERS: ADMIT Internal Medicine; ATTEND Internal Medicine
DX: J18.9 Pneumonia, unspecified organism (principal); J96.01 Acute respiratory failure with hypoxia; N17.9 Acute kidney failure, unspecified; C91.10 Chronic lymphocytic leukemia of B-cell type not having achieved remission; Z95.2 Presence of prosthetic heart valve; E11.9 Type 2 diabetes mellitus without complications; Z79.84 Long term (current) use of oral hypoglycemic drugs; I10 Essential (primary) hypertension; E78.5 Hyperlipidemia, unspecified; Z77.22 Contact with and (suspected) exposure to environmental tobacco smoke (acute) (chronic)
CPT/HCPCS: 70450; 71010; 71275; 76937; 80048; 80053; 81001; 82550; 82948; 83036; 83735; 83880; 84484; 85007; 85027; 85379; 85610; 85730; 87040; 93005; 94060; J0456; J0696; J1650; J1815; J1956; J7030; J7050; Q0163; Q9967

== ENCOUNTER 2016-09-06 15:57 | Emergency (ER) | payer MEDICARE, OTHER ==
[~2016-09-06] VITALS: Ht 177.8 cm; Wt 78.0 kg
[~2016-09-06 15:57] MED LIST: GLIP5 PO; LEVA750T9 PO; LISI-519 PO; METF1000 PO; METO25TA3 PO
[2016-09-06 15:58] VITALS: BP 155/78; PULSE 88; RESP 17; TEMP 98.6; O2SAT 99
--- NOTE | 2016-09-06 16:10 | PD ---
Physical Exam Date Seen by Provider: Sep 06, 2016 Time Seen by Provider: 16:06 Data Data Last Documented VS Vital Signs Date Time Temp Pulse Resp B/P Pulse Ox O2 Delivery O2 Flow Rate FiO2 09/06/16 15:58 98.6 88 17 155/78 99 MDM Supervised Visit with MORGAN: No Narrative Course 71 YO M with complaint of LLE edema and SOB x 2.5 days. Called PCP and told to come to ED. Recent PNA, d/c'd from hospital 08/25. Complaint with PO Levaquin. Hx DM, CLL. No blood thinners. Vitals reviewed. Patient seen in triage, awaiting bed placement. Cherelle Stoddard Sep 06, 2016 16:10
[2016-09-06] MEDS ORDERED: SIMV20TA PO (17:21)
[2016-09-06] MEDS ORDERED: SODIUM CHLORIDE 0.9% FLUSH 10 ML FLUSH IVF PRN (17:45)
--- NOTE | 2016-09-06 18:14 | PD ---
HPI Chief Complaint: Edema Time Seen by Provider: 17:42 Travel History International Travel<30 days: No Contact w/Intl Traveler<30days: No Traveled to known affect area: No History of Present Illness HPI 71-year-old male presents with swelling to his left leg with chest pressure over the past couple of days. He states that a week ago he finished a week course of Levaquin that was prescribed for a pneumonia that was found on x-ray while he was here for stroke workup. He states that he hasn't had any upper respiratory symptoms. He denies other concurrent complaints. Quality is swollen. Severity is moderate. Location is left leg. Duration is couple of days. PFSH Past Medical History Hx Anticoagulant Therapy: Yes (81MG ASPIRIN) Arthritis: Yes Asthma: No Atrial Fibrillation: Yes Autoimmune Disease: No Blood Disorders: No Anxiety: No Depression: No Heart Rhythm Problems: No Cancer: Yes (CLL) Cardiovascular Problems: Yes (htn) High Cholesterol: Yes Chemotherapy: No (only monitoring as yet) Chest Pain: No Congestive Heart Failure: No COPD: No Cerebrovascular Accident: No Diabetes: Yes Patient Takes Glucophage: No Diminished Hearing: No Gastrointestinal Disorders: No GERD: No Glaucoma: No Genitourinary: Yes Headaches: No Hepatitis: No Hiatal Hernia: No Hypertension: Yes Kidney Stones: No Musculoskeletal: Yes Neurologic: No Psychiatric: No Reproductive: No Respiratory: Yes (Admitted 08/22/16 with pneumonia) Migraines: Yes (States "ocular migraines") Myocardial Infarction: No Radiation Therapy: No Renal Failure: No Seizures: No Sleep Apnea: No Thyroid Disease: No Ulcer: No Tetanus Vaccination: < 5 Years Past Surgical History Abdominal Surgery: Yes (Appendectomy 1967) AICD: No Appendectomy: Yes Cardiac Surgery: Yes (MITRAL VALVE) Ear Surgery: No Endocrine Surgery: No Eye Surgery: No Genitourinary Surgery: No Gynecologic Surgery: No Neurologic Surgery: No Oral Surgery: No Pacemaker: No Thoracic Surgery: No Other Surgery: Yes Social History Alcohol Use: No Tobacco Use: No Substance Use: No Allergies-Medications (Allergen,Severity, Reaction): Coded Allergies: Scallop (Verified Allergy, Severe, vomiting, 09/06/16) Reported Meds & Prescriptions Reported Meds & Active Scripts Active Metoprolol Tartrate 25 Mg Tab 12.5 Mg PO Q12HR 30 Days Lisinopril 5 Mg Tab 2.5 Mg PO DAILY 30 Days Glucotrol (Glipizide) 5 Mg Tab 5 Mg PO BID@ 30 Days Reported Simvastatin 20 Mg Tab 20 Mg PO DAILY Metformin (Metformin HCl) 1,000 Mg Tab 1,000 Mg PO BIDPC With meals Review of Systems Except as stated in HPI: all other systems reviewed are Neg Physical Exam Narrative GENERAL: Well-nourished, well-developed patient. SKIN: Warm and dry. HEAD: Normocephalic and atraumatic. EYES: No injection or drainage. ENT: No nasal drainage noted. NECK: Supple, trachea midline. CARDIOVASCULAR: Regular rate and rhythm RESPIRATORY: Breath sounds equal bilaterally at apices. No accessory muscle use. GASTROINTESTINAL: Abdomen soft, non-tender, nondistended. EXTREMITIES: Nonpitting edema noted to left leg, neurovascularly intact NEUROLOGICAL: Awake and alert. Motor and sensory grossly within normal limits. Normal speech. Data Data Last Documented VS Vital Signs Date Time Temp Pulse Resp B/P Pulse Ox O2 Delivery O2 Flow Rate FiO2 09/06/16 17:13 66 16 99 Room Air 09/06/16 15:58 98.6 155/78 Orders Us Leg Venous Doppler (09/06/16 17:44) Electrocardiogram (09/06/16 17:44) B-Type Natriuretic Peptide (09/06/16 17:44) Ckmb (Isoenzyme) Profile (09/06/16 17:44) Complete Blood Count With Diff (09/06/16 17:44) Comprehensive Metabolic Panel (09/06/16 17:44) Magnesium (Mg) (09/06/16 17:44) Prothrombin Time / Inr (Pt) (09/06/16 17:44) Act Partial Throm Time (Ptt) (09/06/16 17:44) Troponin I (09/06/16 17:44) Chest, Single Ap (09/06/16 17:44) Ecg Monitoring (09/06/16 17:44) Bilateral Bp Monitoring (09/06/16 17:44) Iv Access Insert/Monitor (09/06/16 17:44) Oximetry (09/06/16 17:44) Sodium Chloride 0.9% Flush (Ns Flush) (09/06/16 17:45) Ct Pulmonary Angiogram (09/06/16 17:44) Labs Laboratory Tests Test 6/27/17 17:45 White Blood Count 11.3 TH/MM3 Red Blood Count 4.01 MIL/MM3 Hemoglobin 12.8 GM/DL Hematocrit 38.3 % Mean Corpuscular Volume 95.7 FL Mean Corpuscular Hemoglobin 31.8 PG Mean Corpuscular Hemoglobin 33.3 % Concent Red Cell Distribution Width 14.0 % Platelet Count 150 TH/MM3 Mean Platelet Volume 8.5 FL Neutrophils (%) (Auto) 27.8 % Lymphocytes (%) (Auto) 67.8 % Monocytes (%) (Auto) 1.3 % Eosinophils (%) (Auto) 2.2 % Basophils (%) (Auto) 0.9 % Neutrophils # (Auto) 3.1 TH/MM3 Lymphocytes # (Auto) 7.7 TH/MM3 Monocytes # (Auto) 0.2 TH/MM3 Eosinophils # (Auto) 0.3 TH/MM3 Basophils # (Auto) 0.1 TH/MM3 CBC Comment AUTO DIFF Differential Total Cells 100 Counted Neutrophils % (Manual) 48 % Band Neutrophils % 1 % Lymphocytes % 42 % Monocytes % 1 % Eosinophils % 7 % Basophils % 1 % Neutrophils # (Manual) 5.5 TH/MM3 Differential Comment FINAL DIFF MANUAL Smudge Cells PRESENT Platelet Estimate NORMAL Platelet Morphology Comment NORMAL Red Cell Morphology Comment NORMAL Prothrombin Time 10.7 SEC Prothromb Time International 1.0 RATIO Ratio Activated Partial 24.4 SEC Thromboplast Time MDM Medical Decision Making Medical Screen Exam Complete: Yes Emergency Medical Condition: Yes Medical Record Reviewed: Yes (pmh confirmed) Differential Diagnosis PE, DVT, effusion, cyst Narrative Course Will check blood work, Doppler ultrasound, CT and reevaluate Physician Communication Physician Communication dr el to follow workup and reeval Rvaen Barnett MD Sep 06, 2016 18:14
[2016-09-06 18:21] LABS: AUTOMATED NEUTROPHIL # 3.1 TH/MM3 (1.8-7.7); BASOPHIL # 0.1 TH/MM3 (0-0.2); BASOPHIL % 0.9 % (0.0-2.0); EOSINOPHIL # 0.3 TH/MM3 (0-0.4); EOSINOPHIL % 2.2 % (0.0-4.0); HEMATOCRIT 38.3 % (39.0-51.0); LYMPH % 67.8 % (9.0-44.0); LYMPHOCYTE # 7.7 TH/MM3 (1.0-4.8); MEAN CELL VOLUME 95.7 FL (80.0-100.0); MEAN CORPUSCULAR HEMOGLOBIN 31.8 PG (27.0-34.0); MEAN CORPUSCULAR HGB CONC 33.3 % (32.0-36.0); MONO % 1.3 % (0.0-8.0); NEUT % 27.8 % (16.0-70.0); PLATELET COUNT 150 TH/MM3 (150-450); RED BLOOD COUNT 4.01 MIL/MM3 (4.50-5.90); WHITE BLOOD COUNT 11.3 TH/MM3 (4.0-11.0)
[2016-09-06 18:25] LABS: HEMO FLAGS AUTO DIFF
[2016-09-06 18:30] LABS: PROTHROMBIN TIME - PATIENT 10.7 SEC (9.8-11.6)
[2016-09-06 18:36] LABS: APTT (PATIENT) 24.4 SEC (24.3-30.1)
[2016-09-06 18:57] LABS: BANDS 1 % (0-6); BASOPHILS 1 % (0-2); EOSINOPHILS 7 % (0-4); NEUTROPHIL # MANUAL DIFF 5.5 TH/MM3 (1.8-7.7); PLATELET ESTIMATE SMEAR NORMAL (NORMAL); PLATELET MORPHOLOGY NORMAL (NORMAL); POLYS (SEG NEUTROPHILS) 48 % (16-70); SCAN/DIFF FINAL DIFF MANUAL; SMUDGE CELLS PRESENT PRESENT; WBC DIFF SAMPLE 100
--- NOTE | 2016-09-06 19:00 | RADRPT ---
EXAM DATE/TIME: 09/06/2016 17:52 [facility] COMPARISON: No previous studies available for comparison. INDICATIONS : Left leg swelling. MEDICAL HISTORY : Hypertension. Hypercholesterolemia. Reading glasses. Migraine. Anticoagulant therapy 81mg asprin. Atrial fibrillation. Renal disease. Urinary tract infection. Arthritis. Back problems. Diabetes. Blo od dyscrasias. Cancer. SURGICAL HISTORY : Appendectomy. ENCOUNTER: Initial ACUITY: 3 days PAIN SCORE: 0/10 LOCATION: Left leg. TECHNIQUE: Venous ultrasound of the leg was performed from the inguinal ligament to the proximal calf. Real-radha e, color Doppler and spectral tracing, compression and augmentation techniques were used. FINDINGS: There is normal compressibility of the deep venous system from the inguinal region to the proximal ca lf. No echogenic clot is seen in the lumen of the common femoral, femoral, popliteal, and posterior tibial veins. There is a normal response of the venous system to proximal and distal augmentation an d respiration. CONCLUSION: No DVT. Arcenio aHy MD on September 06, 2016 at 18:57 Board Certified Radiologist. This report was verified electronically.
--- NOTE | 2016-09-06 19:21 | RADRPT ---
EXAM DATE/TIME: 09/06/2016 18:39 [facility] COMPARISON: CHEST SINGLE AP, August 22, 2016, 17:35. INDICATIONS : Shortness of breath. Bilateral leg swelling. MEDICAL HISTORY : Cardiovascular disease. SURGICAL HISTORY : Valve replacement. ENCOUNTER: Initial ACUITY: 2 days PAIN SCORE: 0/10 LOCATION: Bilateral chest FINDINGS: The patient is status post sternotomy. There is a prosthetic valve in place. The heart size is upper limits of normal. There is increased density identified at the right lung base. Ther e is some mild underlying prominence of the interstitium. Significant effusions are not clearly seen . CONCLUSION: 1. Right lower lobe consolidation or atelectasis which appears worse. 2. Mild prominence in the interstitium diffusely raising the possibility of underlying pulmonary veno us hypertension or mild edema. 3. Status post sternotomy and placement of a prosthetic valve. Arcenio Hay MD on September 06, 2016 at 19:13 Board Certified Radiologist. This report was verified electronically.
[2016-09-06 19:44] LABS: ANION GAP 7 MEQ/L (5-15); AST (GOT) 34 U/L (15-37); BICARBONATE 24.3 MEQ/L (21.0-32.0); BLOOD UREA NITROGEN 27 MG/DL (7-18); CHLORIDE 103 MEQ/L (98-107); GLOMERULAR FILTRATION RATE 61 ML/MIN (>89); MAGNESIUM 1.9 MG/DL (1.5-2.5); SODIUM (NA) 134 MEQ/L (136-145)
[2016-09-06 19:48] LABS: ALKALINE PHOSPHATASE 53 U/L (45-117); ALT (GPT) 20 U/L (12-78); CREATINE KINASE 139 U/L (39-308); POTASSIUM 4.6 MEQ/L (3.5-5.1); TOTAL BILIRUBIN ADULT 1.1 MG/DL (0.2-1.0)
[2016-09-06 20:01] LABS: CKMB 1.3 NG/ML (0.5-3.6)
--- NOTE | 2016-09-06 20:21 | PD ---
Physical Exam Date Seen by Provider: Sep 06, 2016 Narrative GENERAL: SKIN: Warm and dry. HEAD: Atraumatic. Normocephalic. EYES: Pupils equal and round. No scleral icterus. No injection or drainage. ENT: No nasal bleeding or discharge. Mucous membranes pink and moist. NECK: Trachea midline. No JVD. CARDIOVASCULAR: Regular rate and rhythm. TRACE PEDAL EDEMA TO LLE WITH STRONG DP/PTI PALPABLE PULSES, EXTREMITY NL COLOR AND NORMAL TEMPERATURE TO TOUCH RESPIRATORY: No accessory muscle use. NORMAL PULSE OX. CRACKLES ON RLL AREA, OTHERWISE CLEAR TO AUSCULTATION. GASTROINTESTINAL: Abdomen soft, non-tender, nondistended. Hepatic and splenic margins not palpable. MUSCULOSKELETAL: Extremities without clubbing, cyanosis, or edema. No obvious deformities. NEUROLOGICAL: Awake and alert. No obvious cranial nerve deficits. Motor grossly within normal limits. Five out of 5 muscle strength in the arms and legs. Normal speech. PSYCHIATRIC: Appropriate mood and affect; insight and judgment normal. Data Data Last Documented VS Vital Signs Date Time Temp Pulse Resp B/P Pulse Ox O2 Delivery O2 Flow Rate FiO2 09/06/16 20:24 75 18 134/75 98 Room Air 09/06/16 15:58 98.6 Orders Us Leg Venous Doppler (09/06/16 17:44) Electrocardiogram (09/06/16 17:44) B-Type Natriuretic Peptide (09/06/16 17:44) Ckmb (Isoenzyme) Profile (09/06/16 17:44) Complete Blood Count With Diff (09/06/16 17:44) Comprehensive Metabolic Panel (09/06/16 17:44) Magnesium (Mg) (09/06/16 17:44) Prothrombin Time / Inr (Pt) (09/06/16 17:44) Act Partial Throm Time (Ptt) (09/06/16 17:44) Troponin I (09/06/16 17:44) Chest, Single Ap (09/06/16 17:44) Ecg Monitoring (09/06/16 17:44) Bilateral Bp Monitoring (09/06/16 17:44) Iv Access Insert/Monitor (09/06/16 17:44) Oximetry (09/06/16 17:44) Sodium Chloride 0.9% Flush (Ns Flush) (09/06/16 17:45) Ct Pulmonary Angiogram (09/06/16 17:44) CKMB (09/06/16 19:10) CKMB% (09/06/16 19:10) Iohexol 350 Inj (Omnipaque 350 Inj) (09/06/16 20:48) Labs Laboratory Tests Test 09/06/16 09/06/16 17:45 19:10 White Blood Count 11.3 TH/MM3 Red Blood Count 4.01 MIL/MM3 Hemoglobin 12.8 GM/DL Hematocrit 38.3 % Mean Corpuscular Volume 95.7 FL Mean Corpuscular Hemoglobin 31.8 PG Mean Corpuscular Hemoglobin 33.3 % Concent Red Cell Distribution Width 14.0 % Platelet Count 150 TH/MM3 Mean Platelet Volume 8.5 FL Neutrophils (%) (Auto) 27.8 % Lymphocytes (%) (Auto) 67.8 % Monocytes (%) (Auto) 1.3 % Eosinophils (%) (Auto) 2.2 % Basophils (%) (Auto) 0.9 % Neutrophils # (Auto) 3.1 TH/MM3 Lymphocytes # (Auto) 7.7 TH/MM3 Monocytes # (Auto) 0.2 TH/MM3 Eosinophils # (Auto) 0.3 TH/MM3 Basophils # (Auto) 0.1 TH/MM3 CBC Comment AUTO DIFF Differential Total Cells 100 Counted Neutrophils % (Manual) 48 % Band Neutrophils % 1 % Lymphocytes % 42 % Monocytes % 1 % Eosinophils % 7 % Basophils % 1 % Neutrophils # (Manual) 5.5 TH/MM3 Differential Comment FINAL DIFF MANUAL Smudge Cells PRESENT Platelet Estimate NORMAL Platelet Morphology Comment NORMAL Red Cell Morphology Comment NORMAL Prothrombin Time 10.7 SEC Prothromb Time International 1.0 RATIO Ratio Activated Partial 24.4 SEC Thromboplast Time B-Type Natriuretic Peptide 179 PG/ML Sodium Level 134 MEQ/L Potassium Level 4.6 MEQ/L Chloride Level 103 MEQ/L Carbon Dioxide Level 24.3 MEQ/L Anion Gap 7 MEQ/L Blood Urea Nitrogen 27 MG/DL Creatinine 1.18 MG/DL Estimat Glomerular Filtration 61 ML/MIN Rate Random Glucose 132 MG/DL Calcium Level 8.7 MG/DL Magnesium Level 1.9 MG/DL Total Bilirubin 1.1 MG/DL Aspartate Amino Transf 34 U/L (AST/SGOT) Alanine Aminotransferase 20 U/L (ALT/SGPT) Alkaline Phosphatase 53 U/L Total Creatine Kinase 139 U/L Creatine Kinase MB 1.3 NG/ML Troponin I LESS THAN 0.02 NG/ML Total Protein 6.8 GM/DL Albumin 3.5 GM/DL [facility] Medical Record Reviewed: Yes Supervised Visit with MORGAN: No Differential Diagnosis DVT V PE V WORSENING PNA V PERIPHERAL EDEMA Narrative Course THUS FAR PATIENT IS PLEASANT, TOLERATING PO, AND AMBULATORY WITHOUT HYPOXEMIA. CURRENTLY ULTRS NEG FOR DVT, AWAITING CT R/O PE AT 2019. AT [address] RESULTED, SHOWS NO PE, SIMILAR FINDINGS BEFORE BUT IMPROVED SHOWING RESOLVING BUT STILL PRESENT PNA. WILL D/C WITH ADDITIONAL LEVAQUIN AND ALBUTEROL/MEDROL MIO Diagnosis Primary Impression: RESOLVING PNEUMONIA (RLL) Additional Impression: BRONCHOSPASM DUE TO PNEUMONIA Scripts Methylprednisolone Dosepak (Medrol Dosepak)4 Mg Dspk4 Mg PO DIRECTED #1 DSPK Per Pharmacist direction Prov:Sohail Emerson MD 09/06/16 Albuterol 6.7 GM Inh (Proventil Hfa 6.7 GM Inh)90 Mcg/Act Aer1 Puff INH Q4H PRN (SHORTNESS OF BREATH) #1 INHALER Prov:Sohail Emerson MD 09/06/16 Levofloxacin 750 Mg [id number] Mg PO DAILY #4 TAB Ref 0 Prov:Sohail Emerson MD 09/06/16 Disposition: 01 DISCHARGE HOME Condition: Stable Sohail Emerson MD Sep 06, 2016 20:21
[2016-09-06 20:24] VITALS: BP 134/75; PULSE 75; RESP 18; O2SAT 98
[2016-09-06] MEDS ORDERED: IOHEXOL 350 MG/ML 10 ML VIAL (for RAD DIAG) IV ONE (20:48)
--- NOTE | 2016-09-06 21:39 | RADRPT ---
EXAM DATE/TIME: 09/06/2016 20:27 [facility] COMPARISON: CT PULMONARY ANGIOGRAM, August 23, 2016, 19:17. INDICATIONS : Chest pain and lower extremity swelling. IV CONTRAST: 70 cc Omnipaque 350 (iohexol) IV RADIATION DOSE: 10.48 CTDIvol (mGy) MEDICAL HISTORY : Hypertension. A-Fib. SURGICAL HISTORY : Mitral valve replacement. ENCOUNTER: Initial ACUITY: 3 days PAIN SCALE: 2/10 LOCATION: Bilateral chest TECHNIQUE: Volumetric scanning of the chest was performed using a pulmonary embolism protocol MIP images were reconstructed. Using automated exposure control and adjustment of the mA and/or kV acco rding to patient size, radiation dose was kept as low as reasonably achievable to obtain optimal diag nostic quality images. DICOM format image data is available electronically for review and compariso n. FINDINGS: Pulmonary arteries are well demonstrated. A pulmonary embolus is not seen. There are mu ltiple patchy areas of focal consolidation throughout the right lung. There is further increased con solidation identified at the posterior right lung base. There is a mild to moderate right pleural ef fusion. There is a minimal left pleural effusion. There is some minimal suspected atelectasis or co nsolidation at the medial left lung base. The patient is status post sternotomy. There is a prosthe tic mitral valve in place. There are prominent lymph nodes seen throughout the mediastinum in the pr ecarinal, subcarinal, AP window, and bilateral hilar regions. The largest area of adenopathy is seen in the subcarinal area measuring 3 cm in greatest dimension. There is a low density 3 cm mass adjac ent to the posterior superior aspect of the left kidney likely related to a renal cyst. CONCLUSION: 1. No pulmonary embolus. 2. Patchy areas of consolidation seen throughout the right lung with a mild to moderate right pleural effusion. There is also adenopathy seen throughout the mediastinum. These findings are nonspecific . They could be secondary to inflammatory/infectious processes. Neoplasm accounting for the adenopa thy cannot be excluded. Arcenio Hay MD on September 06, 2016 at 21:25 Board Certified Radiologist. This report was verified electronically.
[2016-09-06] MEDS ORDERED: MEDR4PAK PO (21:54)
[2016-09-06] MEDS ORDERED: ALBU6.7H INH (21:54)
[2016-09-06] MEDS ORDERED: LEVO750T3 PO (21:54)
--- NOTE | 2016-09-07 23:27 | EKG ---
Date Performed: 09/06/2016 Time Performed: 18:34:10 PTAGE: 71 years EKG: Sinus rhythm WITH FIRST DEGREE AV BLOCK MARKED LEFT AXIS DEVIATION ABNORMAL ECG PREVIOUS TRACING : 08/23/2016 05.41 Compared to prior tracing no significant change DOCTOR: Pili Ortiz Interpretating Date/Time 09/07/2016 23:26:38
== END 2016-09-06 22:11 | disposition home or self-care (01) ==
LOC: NEPC 15:57
DX: J18.9 Pneumonia, unspecified organism (principal); J98.01 Acute bronchospasm; I48.91 Unspecified atrial fibrillation; E78.00 Pure hypercholesterolemia, unspecified; I10 Essential (primary) hypertension; E11.9 Type 2 diabetes mellitus without complications; Z79.82 Long term (current) use of aspirin
CPT/HCPCS: 71010; 71275; 80053; 82550; 82552; 83735; 83880; 84484; 85007; 85027; 85610; 85730; 93005; 93971; 99285; Q9967

== ENCOUNTER → 2017-05-29 | Outpatient (CLI) | payer OTHER ==
[~2017-05-29] MED LIST changes: +ALBU6.7H INH; -LEVA750T9 PO; +LEVO750T3 PO; +MEDR4PAK PO; +SIMV20TA PO
--- NOTE | 2017-06-01 13:53 | RSPPFT ---
DATE OF PROCEDURE: 05/29/17 COMMENTS: The forced vital capacity, FEV1, FEV1/FVC ratio and FEF 25-75 are all normal. No improvement is noted after bronchodilator. The total lung capacity is normal with a normal RV/TLC ratio. IMPRESSION: This is a normal pulmonary function study. The diffusion capacity is also normal.
== END ==
LOC: HRSP 08:43
PROVIDERS: ATTEND Family Medicine
DX: R06.02 Shortness of breath (principal)
CPT/HCPCS: 94060; 94726; 94729

== ENCOUNTER 2017-07-14 05:41 | Day surgery (SDC) | payer OTHER ==
[2017-07-14] MEDS ORDERED: SODIUM CHLORID 0.9% 500 ML IV PRN (06:00)
[2017-07-14] MEDS ORDERED: POVIDONE IODINE 5% (ANTISEPSIS KIT) 4 APPLICATIONS EACH NARE PRN (06:00)
[2017-07-14] MEDS ORDERED: LACTATED RINGER'S 1000 ML IV PRN (06:00)
[2017-07-14] MEDS ORDERED: METOPROLOL TARTRATE 25 MG TAB PO PRN (06:00)
[2017-07-14] MEDS ORDERED: CHLORHEXIDINE GLUCONATE 2 % 1 PACK (2 CLOTHS) TOPICAL PRN (06:00)
[2017-07-14] MEDS ORDERED: CYAN100025 SL (08:07)
[2017-07-14] MEDS ORDERED: FURO20TA PO (08:07)
[2017-07-14] MEDS ORDERED: SIMV40TA PO (08:07)
[2017-07-14] MEDS ORDERED: IPRAAER INH (08:07)
[2017-07-14] MEDS ORDERED: ECASA81 PO (08:07)
[2017-07-14] MEDS ORDERED: GLIP10TA6 PO (08:07)
--- NOTE | 2017-07-14 09:29 | ECHRPT ---
Indication: CONCLUSIONS Prosthetic mitral valve showing severe regurgitation and moderate stenosis. BP: 124 / 76 HR: Rhythm: MEASUREMENTS (Male / Female) Normal Values Technical Quality: DOPPLER MV Peak Velocity 241.0 cm/s MV Mean Velocity 144.0 cm/s MV Peak Gradient 23.2 mmHg MV Mean Gradient 9.0 mmHg Medications Complications Proc. Components FINDINGS LEFT VENTRICLE The left ventricular systolic function is normal with an estimated ejection fraction in the range of 55-60%. RIGHT VENTRICLE The right ventricle is mildly dilated. LEFT ATRIUM The left atrial size is moderately dilated. RIGHT ATRIUM The right atrial size is moderately dilated. ATRIAL APPENDAGES The left atrial appendage is moderately increased. ATRIAL SEPTUM Normal atrial septal thickness without atrial level shunting by limited color doppler interrogation. AORTA There is plaque seen in the ascending aorta. MITRAL VALVE Moderate mitral valve stenosis. Severe mitral valve regurgitation. The mitral valve regurgitation jet is directed posteriorly. Mitral valve mean gradient is 9 mmHg. AORTIC VALVE Trileaflet aortic valve. No aortic valve stenosis or regurgitation. TRICUSPID VALVE There is mild tricuspid valve regurgitation. VESSELS The pulmonary valve is not well visualized. Erci Archer MD (Electronically Signed) Final Date:14 Jul 2017 09:28
--- NOTE | 2017-07-14 17:53 | EKG ---
Date Performed: 07/14/2017 Time Performed: 07:12:02 PTAGE: 72 years EKG: Possible ectopic atrial bradycardia. Left axis deviation Septal T wave changes are nonspeci fic Since the previous tracing, no significant change noted Borderline ECG PREVIOUS TRACING : 09/06/16 DOCTOR: Dakota Phan Interpretating Date/Time 07/14/2017 16:34:01
== END 2017-07-14 09:33 | disposition home or self-care (01) ==
LOC: HDOC 05:41 → HDIC 05:42 → HDOC 09:33
PROVIDERS: ATTEND Nuclear Medicine Nuclear Cardiology
DX: I05.2 Rheumatic mitral stenosis with insufficiency (principal)
CPT/HCPCS: 93005; 93312; 93320; 93325

== ENCOUNTER 2017-07-18 12:13 | Day surgery (SDC) | payer OTHER, MEDICAID ==
--- NOTE | 2017-07-13 08:19 | MH ---
cc: Wyatt Gurrola MD DATE OF ADMISSION: 07/18/2017 DATE OF : 1945 HISTORY OF PRESENT ILLNESS: The patient is a 72-year-old white male, followed in our office by Dr. Eric Archer, with a history of paroxysmal atrial fibrillation, diabetes, hyperlipidemia, mitral valve replacement, COPD, hypertension, who is now admitted for right heart catheterization. A recent echo at a radiology center ([facility]) suggested his systolic pulmonary artery pressure was 72 mmHg. He has had fairly stable moderate dyspnea for the past few months. He denies chest pain, palpitations, syncope, near-syncope, pedal edema, or paroxysmal nocturnal dyspnea. PAST MEDICAL HISTORY: 1. Paroxysmal atrial fibrillation, post op from his mitral valve replacement, none since. 2. Diabetes. 3. Hyperlipidemia. 4. Chronic obstructive pulmonary disease. 5. Subacute bacterial endocarditis 2003, status post bovine bioprosthetic mitral valve replacement at that time. 6. Hypertension. 7. Possible severe pulmonary hypertension with an estimated systolic pulmonary artery pressure of 72 mmHg associated with "moderate" mitral stenosis demonstrated on echo 05/18/2017 at the [facility]. CARDIAC MEDICATIONS: 1. Aspirin 81 mg daily. 1. Furosemide 20 mg daily. 2. Lisinopril 2.5 mg daily. 3. Metoprolol tartrate 12.5 mg b.i.d. 4. Simvastatin 20 mg at bedtime. ALLERGIES: NO KNOWN DRUG ALLERGIES. FAMILY HISTORY: Noncontributory. SOCIAL HISTORY: The patient denies any history of alcohol or tobacco abuse. REVIEW OF SYSTEMS: As in the History Of Present Illness, otherwise negative or noncontributory. PHYSICAL EXAMINATION: VITAL SIGNS: Blood pressure 120/60 with a pulse of 60, respirations 15. GENERAL: He is a well-developed, well-nourished white male, in no acute distress. HEENT/NECK: Jugular venous pressure is normal. Carotid pulses are 2+ bilaterally and without bruits. CHEST: Examination of the chest reveals clear lung azul. HEART: He has a regular rhythm and rate with a grade 2/6 systolic murmur heard throughout the precordium. The S2 heart sound is normal. No gallop is audible. ABDOMEN: On abdominal examination, he has a soft, nontender abdomen. Bowel sounds are present. There is no definite hepatosplenomegaly. EXTREMITIES: Examination of the extremities reveals no clubbing, cyanosis or edema. IMPRESSION: Possible severe pulmonary hypertension with an estimated systolic pulmonary artery pressure of 72 mmHg on a recent echo at the Radiology Center in this 72-year-old white male with a history of mitral valve replacement in 2003, paroxysmal atrial fibrillation, diabetes, chronic obstructive pulmonary disease, hypertension. I have been asked to see the patient for right heart catheterization to most definitively assess his pulmonary pressures. At this point, I would agree with the need for this exam. He apparently has evidence for moderate stenosis of his mitral valve prosthesis with a mitral valve area measured at 1.35 cm2 on echo on 05/18/2017 with a mean transmitral pressure of 9 mmHg. PLAN: Right heart catheterization. MD MIRIAN Guevara/MI , 04:06 PM , 04:30 PM [facility]
[~2017-07-18] VITALS: Ht 177.8 cm; Wt 79.3 kg
[~2017-07-18 12:13] MED LIST changes: +CYAN100025 SL; +ECASA81 PO; +FURO20TA PO; +GLIP10TA6 PO; -GLIP5 PO; +IPRAAER INH; -LEVO750T3 PO; -MEDR4PAK PO; -SIMV20TA PO; +SIMV40TA PO
[2017-07-18 13:45] VITALS: BP 123/65; PULSE 62; RESP 17; O2SAT 100
[2017-07-18] MEDS ORDERED: NS 1000P @30 MLS/HR (KVO) IV SCH (13:45)
[2017-07-18] MEDS ORDERED: ACAR25TA PO (14:15)
[2017-07-18 14:18] LABS: AUTOMATED NEUTROPHIL # 2.6 TH/MM3 (1.8-7.7); BASOPHIL # 0.1 TH/MM3 (0-0.2); BASOPHIL % 0.8 % (0.0-2.0); EOSINOPHIL # 0.3 TH/MM3 (0-0.4); EOSINOPHIL % 3.2 % (0.0-4.0); HEMATOCRIT 33.6 % (39.0-51.0); HEMOGLOBIN 11.5 GM/DL (13.0-17.0); LYMPH % 63.8 % (9.0-44.0); LYMPHOCYTE # 5.4 TH/MM3 (1.0-4.8); MEAN CORPUSCULAR HEMOGLOBIN 31.9 PG (27.0-34.0); MEAN CORPUSCULAR HGB CONC 34.3 % (32.0-36.0); MEAN PLATELET VOLUME 8.3 FL (7.0-11.0); MONO % 0.9 % (0.0-8.0); MONOCYTE # 0.1 TH/MM3 (0-0.9); NEUT % 31.3 % (16.0-70.0); PLATELET COUNT 180 TH/MM3 (150-450); RED BLOOD COUNT 3.61 MIL/MM3 (4.50-5.90); RED CELL DISTRIBUTION WIDTH 14.7 % (11.6-17.2); WHITE BLOOD COUNT 8.4 TH/MM3 (4.0-11.0)
[2017-07-18 14:28] LABS: INTERNATIONAL NORMALIZED RATIO 1.1 RATIO
[2017-07-18 14:34] LABS: BICARBONATE 29.9 MEQ/L (21.0-32.0); CALCIUM 9.1 MG/DL (8.5-10.1); CREATININE 1.4 MG/DL (0.60-1.30)
[2017-07-18 16:51] LABS: BANDS 1 % (0-6); BASOPHILS 1 % (0-2); LYMPHOCYTES 72 % (9-44); MONOCYTES 2 % (0-8); POLYS (SEG NEUTROPHILS) 23 % (16-70); SMUDGE CELLS PRESENT PRESENT
[2017-07-18 16:53] LABS: OVALOCYTES 1+ (NORMAL)
[2017-07-18 16:54] LABS: KERATOCYTES OCC (NORMAL)
[2017-07-18] MEDS ORDERED: HEPARIN-NS/PF FLUSH BAG 2,000 ML IV FLUSH ONE (17:31)
[2017-07-18] MEDS ORDERED: MIDAZOLAM HCL 2 MG/2 ML VIAL ONE (17:32)
[2017-07-18] MEDS ORDERED: ATROPINE SULFATE 1 MG/ML VIAL IVP PRN (17:45)
[2017-07-18] MEDS ORDERED: ONDANSETRON HCL 4 MG/2 ML VIAL IV PUSH PRN (17:45)
[2017-07-18] MEDS ORDERED: SODIUM CHLOR 0.9% 250 ML INJ 250 ML IV PRN (17:45)
--- NOTE | 2017-07-18 18:14 | CATHPROC ---
[place] HIS Report Study Information Study Number Admission Scheduled Start Study Start [id number] Jul 18 2017 12:13PM 07/18/2017 Jul 18 2017 5:11PM [place] [facility] Cardiac Catheterization Admit Source Facility Department Other [facility] - Science Education Professor Physician and Clinical Staff Initial MD Gurrola, Wyatt Enzyme Chemist Joaquin RN, Azam Recorder Helene Charles,RT(R) (BS) Scrub Rosa Isela Cornelius,RT(R) Procedures Performed Procedure R Heart Cath Equipment Time Program Associate Description Size Mfg Part Number Used/Scraped [id number] 17:12 ALVAREZ CARLSON SWAN JULIA CATHETER FR 7 Used *[id number] TRANSDUCER, TRUWAVE [id number] 17:12 ALVAREZ CARLSON * Used W/STOCKCOCK *[id number] TRANSDUCER, TRUWAVE [id number] 17:12 ALVAREZ CARLSON * Used W/STOCKCOCK *[id number] 18:04 CARDIVA MEDICAL VASCADE, FR6 CLOSURE SYSTEM FR 6\7 Used *[id number] 18:04 CARDIVA MEDICAL VASCADE, FR6 CLOSURE SYSTEM FR 6\7 Used *[id number] 17:12 Sk[employer] PACK, CCL CUSTOM * Used *[id number] 17:12 [employer]yscraper PACER PEN, SKIN DUAL W/ RULER * Used *[id number] 17:12 Smithers Avanza MEDICAL SHEATH, FR6.5 PRELUDE 11CM FR 6.5 038ACT Used *[id number] 17:12 [employer]van[employer] MEDICAL WIRE, 3MMJ .035 180CM 180CM Used *[id number] 17:12 NAMIC MANIFOLD, 2 PORT * Used *[id number] 17:12 NAMIC MANIFOLD, 4 PORT * Used *[id number] 17:12 NYCOMED OMNIPAQUE, 350 MG, 150ML 150ML [id number] Used [id number] 17:12 ROONEY MEDICAL BLANKET,WARM AIR CCL * Used *[id number] 17:12 TERUMO MEDICAL SHEATH, FR7 TERUMO (10CM) FR 7 Used *[id number] History: Current Medications Medication Dosage/Unit Route Frequency Last Date/Time Taken Beta Heber Statins (any) ASA History: Allergies Allergy Reaction No Known Allergies Scallop vomiting scallops vomiting haloperidol Hallucinations History: Risk Factors Family History of Hypertension Dyslipidemia Previous OK Previous Heart Failure Premature CAD Yes Yes No No No Prior Valve Prior PCI Prior CABG Surgery Yes No No Cerebrovascular Peripheral Artery Chronic Lung On Dialysis Diabetes Diabetes Therapy Disease Disease Disease No No No Yes Yes Oral History: Stress Tests Stress or Imaging Studies Performed Yes Standard Exercise Stress Test No Stress Echo No Stress Test SPECT Stress Test SPECT Result Yes Positive Stress Test CMR No Cardiac CTA Coronary Calcium Score No No History: Other Current Smoker No Labs Hgb (g/dl) Hct (%) WBC (l/cumm) Platelets (thousands) 11.60-17.00 35.00-51.00 4.00-11.00 150.00-450.00 11.5 33.6 8.4 18 Glucose (mg/dl) BUN (mg/dl) Creatinine (mg/dl) BUN:Creatinine (1:x) 74.00-106.00 7.00-18.00 0.50-1.30 10.00-20.00 114 27 1.4 19.3 Na (meq/l) K (meq/l) 136.00-145.00 3.50-5.10 137 4.3 INR (PTT:PT) 0.90-1.10 1.1 CPK-MB (ng/ML) 0.50-3.60 Not Drawn Medication Medication Total Dose (Bolus/Oral) Medication Total Dosage/Unit 1% XYLOCAINE 20 mL VERSED 2 mg Medications (Bolus/Oral) Medication Time Given Dosage/Unit Administered By Reason 1% XYLOCAINE 07/18/2017 5:48:53 PM 20 mL Azam Nuñez RN 20 mL 1% XYLOCAINE given in lab by Azam Nuñez RN in Right Groin via Subcutaneous. VERSED 07/18/2017 5:49:40 PM 2 mg Azam Nuñez RN 2 mg VERSED given in lab by Azam Nuñez RN in Left Antecubital via Peripheral IV. Medication (Drip) Medication Time Given Dosage/Unit Concentration/Unit Diluent (ml) Solution IV Solutions 07/18/2017 5:25:49 PM 0 mL (IV) 500 NaCl .9 IV Solutions given in lab by Azam Nuñez RN in Left Antecubital via Peripheral IV. Pump/Drip Flow = 30 ml/hr using NaCl .9. Initial Case Assessment Cardiovascular HR Rhythm NIBP Chest Pain 67 reg 134/47 0 Edema Present Skin color Skin None Normal Warm Dry Circulatory - Right Pulses Dorsalis Pedis Femoral 3 3 Scale (0,1,2,3,4,d) Circulatory - Left Pulses Dorsalis Pedis Femoral 3 3 Scale (0,1,2,3,4,d) Circulatory - Lower Extremities Color Lower Right Color Lower Left Normal Normal Neurological State Oriented to time-place- Alert Moves all extremities person Respiration - General Respiration Rate SpO2 (%) (B/min) 20 98 Chronological Log Time Study Chronological Log 17::56 Patient arrived via Bed. 17::57 Patient Name, D.O.B, / Armband Verified By R.N. 17::57 Consent signed by the physician and the patient and verified by the Science Education Professor staff. 17:25:31 Pre-op and post- op instructions given; patient acknowledges understanding of instructions. 17:25:32 Verbal Stimulation=2 Physical Stimulation=2 Airway=2 Respiration=2 TOTAL=8. (0=absent, 1=li mited, 2=present) 17:25:34 Presedation assessment performed by Science Education Professor RN. 17:25:40 Patient has been NPO for More than 6Hrs. 17:25:40 Skin Breakdown none per pt 17:25:44 Patient Warmer Placed on the Table. 17:25:45 Dorothy Prominences Protected 17:25:46 A # 20 IV was noted in the Antecubital (left). Grade = 0 IV Solutions given in lab by Azam Nuñez RN in Left Antecubital via Peripheral IV. Pump/Drip F low = 30 ml/hr using NaCl 17:25:49 .9. 17:25:50 History and physical on the chart or being dictated. Assessment: Initial Case, HR=67 BPM, Rhythm=reg, PPEC=888/47 mmhg, Chest Pain=0, Edema=None, [place]=Normal, Skin = Warm, Dry Right Pulses: Van Ped=3, Femoral=3 Left Pulses: Van Ped=3, Femoral=3 17:25:50 Lower Right Extremities: Color=Normal Lower Left Extremities: Color=Normal Neurological: State=Alert, Ox3, ARORA Respiration: Resp=20 B/min, SpO2=98 % Vitals capture started with the following parameters, Patient=Adult, Interval=5 min, Initial Pr pxgize=508 mmHg, 17:34:27 Deflation Rate=5 mmHg, Cuff placed on Unknown 17:35:07 NJCT=709/71 mmhg, SpO2=98.0 %, Resp=20 B/min, Pain=0, Jeremie=10, Laurent=2 17:40:00 HR=65 bpm, SMGJ=322/74 mmhg, SpO2=98.0 %, Resp=15 B/min, Pain=0, Jeremie=10, Laurent=2 17:42:35 Bilateral groins prepped with 2% chlorhexidine, and draped after a 3 minute waiting time. 17:43:43 Reference ECG taken 17:45:03 HR=67 bpm, HDLY=796/73 mmhg, SpO2=98.0 %, Resp=10 B/min, Pain=0, Jeremie=10, Laurent=2 Time Out. Correct patient, correct procedure, correct physician, power injector not loaded with contrast with surgical 17:48:32 team present. Time Out Concurred by MD and individual staff in procedure. 17:48:38 Case Start 17:48:53 20 mL 1% XYLOCAINE given in lab by Azam Nuñez RN in Right Groin via Subcutaneous. 17:49:40 2 mg VERSED given in lab by Azam Nuñez RN in Left Antecubital via Peripheral IV. 17:50:00 HR=71 bpm, ASAF=611/72 mmhg, SpO2=98.0 %, Resp=9 B/min, Pain=0, Jeremie=10, Laurent=2 17:52:12 Access site was Right Femoral Vein. 17:52:25 Pressure channel 1 zeroed. 17:52:30 A SHEATH, FR7 TERUMO (10CM) FR 7 was advanced into the Fem Vein (right) using the Percutane ous technique. 17:52:48 A SWAN JULIA CATHETER FR 7 was inserted via Fem Vein (right) 17:55:01 HR=70 bpm, MJEJ=540/67 mmhg, SpO2=96.0 %, Resp=15 B/min, Pain=0, Jeremie=10, Laurent=2 Recorded Pressure: PCW, HR=70, Condition=Condition 1 17:56:40 (Pulmonary Capillary Wedge) PCW 21/24/19 Recorded Pressure: MPA, HR=72, Condition=Condition 1 17:56:55 (Main Pulmonary Artery) MPA 70/25/43 17:57:04 Saturation: Site=PA (Pulmonary Artery) , O2=67.5 %, Hgb=11.5 gm/dl, Condition=Condition 1. Used in calculation. Thermo CO: CO=5.0 l/m, HR=69 bpm, Condition=Condition 1. Used in calculation. 17:59:05 Equipment: Description and Size=SWAN JULIA CATHETER FR 7, Type=Bath Probe, CC=0.579 Injectant: Temp=19.0 - 22.0 Celsius, Volume=10.0 ml Thermo CO: CO=4.8 l/m, HR=69 bpm, Condition=Condition 1. Used in calculation. 17:59:34 Equipment: Description and Size=SWAN JULIA CATHETER FR 7, Type=Bath Probe, CC=0.579 Injectant: Temp=19.0 - 22.0 Celsius, Volume=10.0 ml 18:00:00 HR=68 bpm, QCRT=321/70 mmhg, SpO2=97.0 %, Resp=22 B/min, Pain=0, Jeremie=10, Laurent=2 Thermo CO: CO=4.6 l/m, HR=68 bpm, Condition=Condition 1. Used in calculation. 18:00:06 Equipment: Description and Size=SWAN JULIA CATHETER FR 7, Type=Bath Probe, CC=0.579 Injectant: Temp=19.0 - 22.0 Celsius, Volume=10.0 ml Recorded Pressure: RV, HR=72, Condition=Condition 1 18:01:01 (Right Ventricle) RV 68/1/5 Recorded Pressure: RA, HR=70, Condition=Condition 1 18:01:18 (Right Atrium) RA 5/4/3 18:01:38 Saturation: Site=RA (Right Atrium) , Hgb=11.5 gm/dl, Condition=Condition 1. Used in calcula tion. 18:02:32 Catheter was removed 18:02:37 Case End 18:02:57 Saturation: Site=Ao (Aorta) , O2=95 %, Hgb=11.5 gm/dl, Condition=Condition 1. Used in calcu lation. 18:03:54 VASCADE, FR6 CLOSURE SYSTEM FR 6\7 placement in the Fem Vein (right) 18:04:36 Catheter(s) removed without difficulty 18:04:41 No case complications noted. 18:04:44 Bedside Report will be given. 18:04:45 Implantable Device card placed in patient's chart. 18:04:49 A Right Heart Cath was performed. 18:05:01 HR=70 bpm, INOC=742/75 mmhg, SpO2=96.0 %, Resp=14 B/min, Pain=0, Jeremie=10, Laurent=2 18:10:02 HR=65 bpm, LQZQ=450/71 mmhg, SpO2=97.0 %, Resp=17 B/min, Pain=0, Jeremie=10, Laurent=2 18:11:56 Sterile dressing applied to site 18:13:44 Vitals capture stopped. 18:15:52 [facility] End Study - Contrast Media Used In Study Contrast Total Opened (mL) Total Used (mL) Total Wasted (mL) Omnipaque 0 0 0 End Study - Maximum Contrast Load Max Contrast Load (mL) 283.3 End Study - Radiation Exposure Fluoro Time (minutes) 3.7 End Study - Sheaths Sheaths Pulled By Sheath Hold Time (min) Rosa Isela Cornelius End Study - Patient Disposition Complications Transferred To Interventional Outcome No Science Education Professor Holding No attempt made
--- NOTE | 2017-07-18 18:16 | MA ---
cc: Wyatt Gurrola MD,Arcenio Archer,Eric Ordonez MD DATE: 07/18/2017 PROCEDURES PERFORMED: 1. Right heart catheterization. 2. [place]-Rodolfo catheterization. PROCEDURE NOTES: The patient was brought to the cardiac catheterization laboratory in a fasting state after having signed informed consent. The right groin was prepped and draped as per policy and anesthetized with 1% lidocaine. Central venous access was obtained via the right femoral vein and a 7 Divehi sheath placed. Right heart catheterization was done using a [place]-Rodolfo catheter. There were no apparent immediate complications. The venotomy site was closed with Vascade. HEMODYNAMIC DATA: 1. Right atrium mean equals 4. 2. Right ventricle 68 with an end diastolic pressure less than 10. 3. Pulmonary artery 70/25 with a mean of 43. 4. Pulmonary capillary wedge mean equals 19. Cardiac output by thermodilution method 4.8 liters per minute. Using the Alvaro method, 5.7 liters/minute. OXYGEN SATURATIONS: 1. Right atrium 68.6%. 2. Pulmonary artery 67.5%. 3. Systemic arterial 95%. CONCLUSIONS: 1. Normal central venous pressure and mildly elevated pulmonary capillary wedge pressure. 2. Severe pulmonary hypertension. Wyatt Gurrola MD GHR/DL , 06:07 PM , 06:16 PM [facility]
--- NOTE | 2017-07-19 09:56 | EKG ---
Date Performed: 07/18/2017 Time Performed: 14:19:32 PTAGE: 72 years EKG: Possible ectopic atrial rhythm. Leftward axis Borderline ECG PREVIOUS TRACING : 07/14/2017 07.12 DOCTOR: Rashad Nichole Interpretating Date/Time 07/19/2017 09:55:11
== END 2017-07-18 19:45 | disposition home or self-care (01) ==
LOC: HDIC 12:13 → HDOC 12:13
PROVIDERS: ATTEND Internal Medicine Cardiovascular Disease
DX: I27.20 Pulmonary hypertension, unspecified (principal); I48.0 Paroxysmal atrial fibrillation; I10 Essential (primary) hypertension; E78.5 Hyperlipidemia, unspecified; J44.9 Chronic obstructive pulmonary disease, unspecified; E11.9 Type 2 diabetes mellitus without complications; Z95.3 Presence of xenogenic heart valve; Z79.82 Long term (current) use of aspirin; Z01.818 Encounter for other preprocedural examination
CPT/HCPCS: 80048; 82810; 85007; 85027; 85610; 85730; 93005; 93451; 99152; C1760; C1893; G0269; J1644; J2250; J3010

== ENCOUNTER 2018-01-18 16:07 | Inpatient (IN) ==
--- NOTE | 2018-01-18 16:39 | ED ---
HPI General Chief complaint: Chest Pain Stated complaint: dr sent/ lung pain Time Seen by Provider: 01/18/18 16:27 Source: patient Mode of arrival: ambulatory Limitations: no limitations History of Present Illness HPI narrative: 72-year-old male patient with history of mitral valve replacement , CAD, hypertension, diabetes, A. fib, currently on Eliquis, presents to the ER today sent in by Dr. Perez of cardiology because the patient had visited him for echo evaluation, apparently has been having dyspnea on exertion, leg swelling. He was found to have large bilateral pleural effusions, cardiomyopathy which is new in onset, and was sent in by Dr. Perez to be admitted for further treatment. Related Data Home Medications Medication Instructions Recorded Confirmed apixaban [Eliquis] 5 mg PO BID 01/18/18 01/18/18 azithromycin 250 mg PO DAILY 01/18/18 01/18/18 furosemide [Lasix] 20 mg PO BID 01/18/18 01/18/18 glipizide 10 mg PO DAILY 01/18/18 01/18/18 hydralazine 25 mg PO QID 01/18/18 01/18/18 insulin lispro [Humalog U-100 4 unit SUBCUT TID 01/18/18 01/18/18 Insulin] lisinopril 2.5 mg PO DAILY 01/18/18 01/18/18 metformin 1,000 mg PO BID 01/18/18 01/18/18 prednisone 10 mg PO DAILY 01/18/18 01/18/18 simvastatin 20 mg PO QPM 01/18/18 01/18/18 Allergies Allergy/AdvReac Type Severity Reaction Status Date / Time haloperidol Allergy Severe Hallucinati Verified 01/18/18 17:30 ons scallops Allergy Severe Hives Verified 01/18/18 18:01 Review of Systems ROS: all other systems reviewed are negative [facility] Medical History Medical History Afib (Acute) Diabetes (Acute) Hypertension (Acute) Surgical History Surgical History H/O aortic valve replacement (Acute) H/O mitral valve replacement (Acute) Social History Social History Substance History: No History of Abuse Second Hand Smoke Exposure: No Smoking Status: Never smoker How Often Do You Have a Drink Containing Alcohol: Never Recent Travel in [place] within the Last 8 Weeks: No Recent Out of Country Travel within the Last 8 Weeks: No Exam Narrative Exam Narrative: GENERAL: Well-developed elderly white male patient currently in moderate distress. Awake and oriented x3. SKIN: Focused skin assessment warm/dry. HEAD: Atraumatic. Normocephalic. EYES: Pupils equal and round. No scleral icterus. No injection or drainage. ENT: No nasal bleeding or discharge. Mucous membranes pink and moist. NECK: Trachea midline. Supple. CARDIOVASCULAR: Irregularly irregular. RESPIRATORY: Mild accessory muscle use. Decreased at the bases bilaterally. Breath sounds equal bilaterally. GASTROINTESTINAL: Abdomen soft, non-tender, nondistended. Hepatic and splenic margins not palpable. MUSCULOSKELETAL: No obvious deformities. No clubbing. No cyanosis. +3 pitting edema both legs up to the knees. NEUROLOGICAL: Awake and alert. No obvious cranial nerve deficits. Motor grossly within normal limits. Normal speech. PSYCHIATRIC: Appropriate mood and affect; insight and judgment normal. Course Initial Documented Vital Signs Temperature 97.8 F 01/18/18 16:20 Pulse Rate 136 H 01/18/18 16:20 Respiratory Rate 20 01/18/18 16:20 Blood Pressure 133/83 01/18/18 16:20 Pulse Oximetry 98 01/18/18 16:20 Last Documented Vital Signs Temperature 97.8 F 01/18/18 18:09 Pulse Rate 99 H 01/18/18 18:09 Respiratory Rate 19 01/18/18 18:09 Blood Pressure 112/57 L 01/18/18 18:09 Pulse Oximetry 95 01/18/18 18:09 Medical Decision Making [facility] Narrative Medical decision making narrative: Chest x-ray shows obvious left sided large pleural effusion. A. fib with RVR as noted on EKG at a rate of 130 bpm and Cardizem was given in the ER with good response and heart rates. BUN is elevated creatinine is elevated as well. At this point, patient will need further treatment in case is discussed with Dr. Howe for admission. Medical Screen Exam Complete: Yes Emergency Medical Condition: Yes Differential Diagnosis Differential Diagnosis: CHF exacerbation versus pneumonia versus dysrhythmias Lab Data Lab results reviewed: Yes I reviewed the patient's lab results. Result diagrams: 01/18/18 18:30 01/18/18 16:30 Lab Results 01/18/18 01/18/18 Range/Units 16:30 16:30 Sodium 134 L (136-145) meq/L Potassium 4.3 (3.5-5.1) meq/L Chloride 97 L (98-107) meq/L Carbon Dioxide 25.5 (21.0-32.0) meq/L Anion Gap 12 (5-15) meq/L BUN 51 H (7-18) mg/dL Creatinine 1.73 H (0.60-1.30) mg/dL Estimated GFR 39 L (>89) mL/min Random Glucose 73 L (74-106) mg/dL Calcium 8.7 (8.5-10.1) mg/dL Total Bilirubin 1.0 (0.2-1.0) mg/dL AST 20 (15-37) U/L ALT 16 (12-78) U/L Alkaline Phosphatase 87 (45-117) U/L Troponin I Less than 0.02 L (0.02-0.05) ng/mL B-Natriuretic Peptide 183 H (0-100) pg/mL Total Protein 7.5 (6.4-8.2) g/dL Albumin 3.3 L (3.4-5.0) g/dL Imaging Data Attestation: I personally reviewed and interpreted this imaging study as follows : Radiologist's impression: Chest X-Ray 01/18/18 16:27 CONCLUSION: Large left-sided pleural effusion. ECG Data Attestation: I personally reviewed and interpreted this ECG as follows: Interpretation: EKG shows atrial flutter with rapid ventricular response at a rate of 136 bpm. Discharge Plan Discharge Disposition Patient Disposition: 30 Still Patient Discharge Condition Condition: Fair Discharge Details Anticipated Discharge Date: 01/18/18 Diagnosis: Pleural effusion, Cardiomyopathy Physicians Team ED Provider: Michael Jaffe Primary Care Provider: Saran Saini V Attending Provider: Aron Howe Discharge Interventions Interventions: Vital Signs Last Done: 01/18/18 18:09 Status ED Status: Admitted Patient
--- NOTE | 2018-01-18 16:58 | XR ---
EXAM DATE: 01/18/2018 4:45 PM EST AGE/SEX: 72 years / Male INDICATIONS: Short of breath. Patient sent by his program aide group work for possible fluid. CLINICAL DATA: This is the patient's initial encounter. Patient reports that signs and symptoms have been present for 1 day and indicates a pain score of 2/10. MEDICAL/SURGICAL HISTORY: Cardiovascular disease. . Mitral valve replacement. Aortic valve repl acement. COMPARISON: [facility], XR CHEST PA AND LAT, 01/05/2018. . FINDINGS: There is now a large left-sided pleural effusion. This has increased compared to the prior examinatio n. The right lung remains clear and well-aerated. The heart size is stable. There is evidence of prev ious cardiothoracic surgery. The bony structures are stable. CONCLUSION: Large left-sided pleural effusion. Electronically signed by: Kirit Gordon MD 01/18/2018 4:57 PM EST
[2018-01-18 18:04] LABS: Alanine Aminotransferase 16 U/L (12-78); Albumin 3.3 g/dL (3.4-5.0); Anion Gap 12 meq/L (5-15); Aspartate Aminotransferase 20 U/L (15-37); Blood Urea Nitrogen 51 mg/dL (7-18); Calcium 8.7 mg/dL (8.5-10.1); Carbon Dioxide 25.5 meq/L (21.0-32.0); Chloride 97 meq/L (98-107); Glomerular Filtration Rate 39 mL/min (>89); Glucose,Random 73 mg/dL (74-106); Potassium 4.3 meq/L (3.5-5.1); Sodium 134 meq/L (136-145)
[2018-01-18 18:08] LABS: Alkaline Phosphatase 87 U/L (45-117); Total Protein 7.5 g/dL (6.4-8.2)
[2018-01-18] MEDS ORDERED: Bisacodyl 10 MG Supp RECTAL PRN (18:48)
[2018-01-18] MEDS ORDERED: Acetaminophen 325 MG Tablet PO PRN (18:48)
[2018-01-18 18:55] LABS: Baso # (Auto) 0.1 th/mm3 (0.0-0.2); Baso % (Auto) 0.8 % (0.0-2.0); Eos # (Auto) 0.1 th/mm3 (0.0-0.4); Eos % (Auto) 0.7 % (0.0-4.0); Hematocrit 31.7 % (39.0-51.0); Hemoglobin 10.9 gm/dL (13.0-17.0); Lymph # (Auto) 6.2 th/mm3 (1.0-4.8); Lymph % (Auto) 52.7 % (9.0-44.0); Mean Corpuscular HGB Conc 34.3 % (32.0-36.0); Mean Corpuscular Hemoglobin 31.5 pg (27.0-34.0); Mean Corpuscular Volume 91.9 fL (80.0-100.0); Mean Platelet Volume 7.6 fL (7.0-11.0); Mono # (Auto) 0.2 th/mm3 (0.0-0.9); Mono % (Auto) 1.5 % (0.0-8.0); Neut # (Auto) 5.2 th/mm3 (1.8-7.7); Neut % (Auto) 44.3 % (16.0-70.0); Platelet Count 216 th/mm3 (150-450); Red Blood Count 3.45 mil/mm3 (4.50-5.90); Red Cell Distribution Width 17.3 % (11.6-17.2); White Blood Count 11.7 th/mm3 (4.0-11.0)
[2018-01-18] MEDS ORDERED: Dextrose 50% in Water 50 ML Vial IV.PUSH PRN (19:34)
[2018-01-18 20:06] LABS: Lymphocytes 62 % (9-44); Monocytes 1 % (0-8)
[2018-01-18 20:07] LABS: Platelet Estimate Normal (Normal); Platelet Morphology Normal (Normal); RBC Morphology Normal (Normal); Smudge Cells Present
[2018-01-18] MEDS ORDERED: Metoprolol Tartrate 50 MG Tablet PO SCH (21:00)
[2018-01-18 21:36] LABS: INR 1.1 Ratio; Prothrombin Time 11.4 sec (9.8-11.6)
[2018-01-18] MEDS: Insulin NovoLOG Aspart Correctional Sugar Inj SQ SCH (22:30)
--- NOTE | 2018-01-19 01:43 | P.HPIM ---
History of Present Illness Primary Care Physician: Saran Saini MD History of Present Illness: 72-year-old male with a history of atrial fibrillation, diabetes mellitus, CLL, CAD, status post aortic and mitral valve replacement on December 26 at [facility]. Perioperative course complicated by left pleural effusion which patient reports was drained during admission there. Patient was following up with cardiology today, Dr. Perez due to continued orthopnea, as well as continued bilateral lower extremity edema. Echocardiogram reportedly shows left pleural effusion as well as cardiomyopathy. Upon presentation here, patient found to be in A. fib with RVR which improved after IV diltiazem. Patient denies any chest pain. Reports shortness of breath is stable. Denies any fevers or chills. He says he has been on a azithromycin for several days prescribed by pulmonology without improvement. Patient reports being started on Eliquis several days ago. Inpatient Certification: I certify that the inpatient services were ordered in accordance with Medicare regulations governing the order. This includes certification that hospital inpatient services are reasonable and necessary and in the case of services not specified as inpatient-only under 42 CFR 419.22(n), that they are appropriately provided as inpatient services in accordance to with the 2-midnight benchmark under 43 CFR 412.3(e) Estimated Total Length of Stay (Days): 3 Plans for Post Hospital Care: Home Review of Systems All other systems reviewed negative except as stated in HPI PMFSH - History History Provided By: Patient - Medical History Medical History: Medical History (Last Updated 01/19/18 @ 01:36 by Aries Watson MD) Afib CLL (chronic lymphocytic leukemia) Diabetes Hypertension - Surgical History Surgical History: Surgical History (Last Reviewed 01/18/18 @ 16:59 by Ezequiel Bethea RN) H/O aortic valve replacement H/O mitral valve replacement - Family History Family History: Family History (Last Updated 01/19/18 @ 01:36 by Aries Watson MD) Mother CML (chronic myelocytic leukemia) Father Colon cancer - Social History I have reviewed the patient's Social History: Yes - Tobacco History Second Hand Smoke Exposure: No Smoking Status: Never smoker - Alcohol History How Often Do You Have a Drink Containing Alcohol: Never - Substance Use History Substance History: No History of Abuse - Travel History Recent Travel in the [place] Within the Last 8 Weeks: No Recent Travel Out of the Country Within the Last 8 Weeks: No - Immunization History Tetanus Immunization: >5 Years Medications and Allergies Active Medications: Active Medications Acetaminophen (Tylenol) 650 mg PO Q4H PRN PRN Reason: Temp > 100.4 Bisacodyl (Dulcolax Supp) 10 mg RECTAL DAILY PRN PRN Reason: SEVERE CONSITIPATION Dextrose (D50w Vial) 50 ml IV.PUSH UNSCH PRN PRN Reason: PER HYPOGLYCEMIA PROTOCOL Glucagon (Glucagon Inj) 1 mg OTHER PRN PRN PRN Reason: for Hypoglycemia Protocol Insulin Aspart (Novolog Insulin Correctional Sugar Inj) 0 unit SQ ACHS FOR[facility]LY [facility], 1928–1983; Protocol Last Admin: 01/18/18 22:30 Dose: Not Given Metoprolol Tartrate (Lopressor) 50 mg PO BID FOR[facility], 1928–1983 Pravastatin Sodium (Pravachol) 40 mg PO DAILY@1800 TAWANDA Prednisone (Deltasone) 10 mg PO DAILY FOR[facility]LY [facility], 1928[facility]1983 Sennosides (Senokot) 17.2 mg PO Q12H PRN PRN Reason: Moderate Constipation Allergies Allergy/AdvReac Type Severity Reaction Status Date / Time haloperidol Allergy Severe Hallucinati Verified 01/18/18 17:30 ons scallops Allergy Severe Hives Verified 01/18/18 18:01 Home Medications Medication Instructions Recorded Confirmed Type apixaban [Eliquis] 5 mg PO BID 01/18/18 01/18/18 History azithromycin 250 mg PO DAILY 01/18/18 01/18/18 History furosemide [Lasix] 20 mg PO BID 01/18/18 01/18/18 History glipizide 10 mg PO DAILY 01/18/18 01/18/18 History hydralazine 25 mg PO QID 01/18/18 01/18/18 History insulin lispro [Humalog U-100 4 unit SUBCUT TID 01/18/18 01/18/18 History Insulin] lisinopril 2.5 mg PO DAILY 01/18/18 01/18/18 History metformin 1,000 mg PO BID 01/18/18 01/18/18 History prednisone 10 mg PO DAILY 01/18/18 01/18/18 History simvastatin 20 mg PO QPM 01/18/18 01/18/18 History Exam Vital signs: Vital Signs 01/18/18 16:20 01/18/18 16:27 01/18/18 18:09 Temperature 97.8 F 97.8 F 97.8 F Pulse Rate 136 H 135 H 99 H Respiratory Rate 20 23 19 Blood Pressure 133/83 99/79 L 112/57 L Pulse Oximetry 98 95 95 01/18/18 19:56 01/18/18 22:38 Temperature Pulse Rate 90 97 H Respiratory Rate 16 Blood Pressure 114/97 H Pulse Oximetry Intake & Output 01/18/18 01/18/18 01/19/18 06:59 18:59 06:59 Weight 76.204 kg Narrative: GENERAL: Bed. Appears comfortable. Alert and oriented x3. SKIN: Warm and dry. HEAD: Atraumatic. Normocephalic. EYES: Pupils equal and round. No scleral icterus. No injection or drainage. ENT: No nasal bleeding or discharge. Mucous membranes pink and moist. NECK: Trachea midline. No JVD. CARDIOVASCULAR: Regular rate and rhythm. RESPIRATORY: No accessory muscle use. Clear to auscultation. Left lung with decreased breath sounds. Chest incision appears to be healing well. No erythema GASTROINTESTINAL: Abdomen soft, non-tender, nondistended. Hepatic and splenic margins not palpable. MUSCULOSKELETAL: Extremities without clubbing, cyanosis. +1 bilateral lower extremity edema. No erythema. No obvious deformities. NEUROLOGICAL: Awake and alert. No obvious cranial nerve deficits. Motor grossly within normal limits. Five out of 5 muscle strength in the arms and legs. Normal speech. PSYCHIATRIC: Appropriate mood and affect; insight and judgment normal. Results - Labs CBC & Chem 7: 01/18/18 18:30 01/18/18 16:30 Labs: Short CBC 01/18/18 Range/Units 18:30 WBC 11.7 H (4.0-11.0) th/mm3 Hgb 10.9 L (13.0-17.0) gm/dL Hct 31.7 L (39.0-51.0) % Plt Count 216 (150-450) th/mm3 BMP 01/18/18 16:30 Sodium 134 L Potassium 4.3 Chloride 97 L Carbon Dioxide 25.5 BUN 51 H Creatinine 1.73 H Calcium 8.7 Cardiac Enzymes 01/18/18 Range/Units 16:30 Troponin I Less than 0.02 L (0.02-0.05) ng/mL Liver Function 01/18/18 Range/Units 16:30 Total Bilirubin 1.0 (0.2-1.0) mg/dL AST 20 (15-37) U/L ALT 16 (12-78) U/L Alkaline Phosphatase 87 (45-117) U/L Albumin 3.3 L (3.4-5.0) g/dL - Imaging Impressions Chest X-Ray 01/18/18 16:27 CONCLUSION: Large left-sided pleural effusion. Caprini VTE Risk Assessment Caprini VTE Risk Assessment: Moderate/High Risk (score >= 2) Caprini Risk Assessment Model: Point Value = 1 Point Value = 2 Point Value = 3 Point Value = 5 Age 41-60 Minor surgery BMI > 25 kg/m2 Swollen legs Varicose veins or History of unexplained or recurrent spontaneous Oral contraceptives or hormone replacement Sepsis (< 1 month) Serious lung disease, including pneumonia (< 1 month) Abnormal pulmonary function Acute myocardial infarction Congestive heart failure (< 1 month) History of inflammatory bowel disease Medical patient at bed rest Age 61-74 Arthroscopic surgery Major open surgery (> 45 min) Laparoscopic surgery (> 45 min) Malignancy Confined to bed (> 72 hours) Immobilizing plaster cast Central venous access Age >= 75 History of VTE Family history of VTE Factor V Leiden Prothrombin [id number] Lupus anticoagulant Anticardiolipin antibodies Elevated serum homocysteine Heparin-induced thrombocytopenia Other congenital or acquired thrombophilia Stroke (< 1 month) Elective arthroplasty Hip, pelvis, or leg fracture Acute spinal cord injury (< 1 month) Prophylaxis Regimen: Total Risk Factor Score Risk Level Prophylaxis Regimen 0-1 Low Early ambulation 2 Moderate Order ONE of the following: *Sequential Compression Device (SCD) *Heparin 5000 units SQ BID 3-4 Higher Order ONE of the following medications: *Heparin 5000 units SQ TID *Enoxaparin/Lovenox 40 mg SQ daily (WT < 150 kg, CrCl > 30 mL/min) *Enoxaparin/Lovenox 30 mg SQ daily (WT < 150 kg, CrCl > 10-29 mL/min) *Enoxaparin/Lovenox 30 mg SQ BID (WT < 150 kg, CrCl > 30 mL/min) AND/OR *Sequential Compression Device (SCD) 5 or more Highest Order ONE of the following medications: *Heparin 5000 units SQ TID (Preferred with Epidurals) *Enoxaparin/Lovenox 40 mg SQ daily (WT < 150 kg, CrCl > 30 mL/min) *Enoxaparin/Lovenox 30 mg SQ daily (WT < 150 kg, CrCl > 10-29 mL/min) *Enoxaparin/Lovenox 30 mg SQ BID (WT < 150 kg, CrCl > 30 mL/min) AND *Sequential Compression Device (SCD) Assessment and Plan - Plan //Left lung pleural effusion. -Apparently had been drained at [facility] as well 2 weeks ago. -BNP only slightly elevated in the 180s. However, patient does have atrial fibrillation with RVR and this could be contributory. -Patient also has CLL which could be contributory as well. -We will hold off on Eliquis for now. May need thoracentesis in the coming days. 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 Will avoid diuresis right now pending results of echocardiogram. //Atrial fibrillation with RVR. Improved after IV diltiazem. Will start on p.o. metoprolol and monitor. Cardiology be consulted. //Diabetes mellitus. With sugars in the 200s. Start on diabetic diet and insulin sliding scale. //Chronic kidney disease. Creatinine 1.7 from what appears to be baseline of 1.4 in July of this year. Uncertain etiology. Could be secondary to atrial fibrillation with RVR. Monitor. //DVT prophylaxis. SCDs. We will hold off on Eliquis due to possible thoracentesis. Discussed Condition With: Patient, nurse, Dr. Howe H&P: Quality - VTE Deep Vein Thrombosis/Pulmonary Embolism Present on Admission: No
--- NOTE | 2018-01-19 07:38 | P.PNIM ---
Subjective Interval history: Shortness of breath minimal, no chest pain, denies any nausea or vomiting. On n.p.o. Status post thoracentesis today, 2 L taken out. Physical Exam Vital signs: Vital Signs 01/18/18 16:20 01/18/18 16:27 01/18/18 18:09 Temperature 97.8 F 97.8 F 97.8 F Pulse Rate 136 H 135 H 99 H Respiratory Rate 20 23 19 Blood Pressure 133/83 99/79 L 112/57 L Pulse Oximetry 98 95 95 01/18/18 19:56 01/18/18 20:00 01/18/18 22:38 Temperature Pulse Rate 90 97 H Respiratory Rate 16 Blood Pressure 114/97 H Pulse Oximetry 94 L 01/18/18 23:00 01/19/18 00:00 01/19/18 01:00 Temperature 98.1 F Pulse Rate 105 H 66 88 Respiratory Rate 20 Blood Pressure 121/82 Pulse Oximetry 94 L 01/19/18 02:00 01/19/18 03:00 01/19/18 04:00 Temperature 98.5 F Pulse Rate 76 99 H 88 Respiratory Rate 16 Blood Pressure 120/74 Pulse Oximetry 98 01/19/18 05:00 01/19/18 06:00 Temperature Pulse Rate 96 H 98 H Respiratory Rate Blood Pressure Pulse Oximetry Intake & Output 01/18/18 01/19/18 01/19/18 18:59 06:59 18:59 Intake Total 240 / 240 Output Total 350 / 350 Balance -110 / -110 Weight 76.204 kg 76.3 kg Intake: Oral 240 / 240 Output: Urine 350 / 350 Other: Date of Last Bowel Movement 01/18/18 Narrative: GENERAL: Bed. Appears comfortable. Alert and oriented x3. S CARDIOVASCULAR: Regular rate and rhythm. RESPIRATORY: No accessory muscle use. Clear to auscultation. Left lung with decreased breath sounds. Chest incision appears to be healing well. No erythema GASTROINTESTINAL: Abdomen soft, non-tender, nondistended. Hepatic and splenic margins not palpable. MUSCULOSKELETAL: Extremities without clubbing, cyanosis. Trace lower extremity edema NEUROLOGICAL: Awake and alert. No obvious cranial nerve deficits. Motor grossly within normal limits. Five out of 5 muscle strength in the arms and legs. Normal speech. Results - Labs CBC & Chem 7: 01/19/18 11:36 01/19/18 11:36 Laboratory Results - last 24 hr 01/18/18 01/18/18 01/18/18 16:30 16:30 18:30 WBC 11.7 H RBC 3.45 L Hgb 10.9 L Hct 31.7 L MCV 91.9 MCH 31.5 MCHC 34.3 RDW 17.3 H Plt Count 216 MPV 7.6 Prelim Diff (Auto) Slide review pending Neut % (Auto) 44.3 Lymph % (Auto) 52.7 H [place] % (Auto) 1.5 Eos % (Auto) 0.7 Baso % (Auto) 0.8 Neut # (Auto) 5.2 Lymph # (Auto) 6.2 H [place] # (Auto) 0.2 Eos # (Auto) 0.1 Baso # (Auto) 0.1 WBC Differential Manual diff final Seg Neuts % (Manual) 37 Lymphocytes % (Manual) 62 H Monocytes % (Manual) 1 Abs Neuts (Manual) 4.3 Differential Comment . Smudge Cells Present H Platelet Estimate Normal Platelet Morphology Normal RBC Morphology Normal PT INR Sodium 134 L Potassium 4.3 Chloride 97 L Carbon Dioxide 25.5 Anion Gap 12 BUN 51 H Creatinine 1.73 H Estimated GFR 39 L POC Glucose Random Glucose 73 L Calcium 8.7 Total Bilirubin 1.0 AST 20 ALT 16 Alkaline Phosphatase 87 Troponin I Less than 0.02 L B-Natriuretic Peptide 183 H Total Protein 7.5 Albumin 3.3 L 01/18/18 01/18/18 20:57 22:21 WBC RBC Hgb Hct MCV MCH MCHC RDW Plt Count MPV Prelim Diff (Auto) Neut % (Auto) Lymph % (Auto) [place] % (Auto) Eos % (Auto) Baso % (Auto) Neut # (Auto) Lymph # (Auto) [place] # (Auto) Eos # (Auto) Baso # (Auto) WBC Differential Seg Neuts % (Manual) Lymphocytes % (Manual) Monocytes % (Manual) Abs Neuts (Manual) Differential Comment Smudge Cells Platelet Estimate Platelet Morphology RBC Morphology PT 11.4 INR 1.1 Sodium Potassium Chloride Carbon Dioxide Anion Gap BUN Creatinine Estimated GFR POC Glucose 245 H Random Glucose Calcium Total Bilirubin AST ALT Alkaline Phosphatase Troponin I B-Natriuretic Peptide Total Protein Albumin - Imaging Impressions Chest X-Ray 01/18/18 16:27 CONCLUSION: Large left-sided pleural effusion. Assessment and Plan - Plan This is a 72-year-old male with history of atrial fibrillation, diabetes mellitus, CLL, coronary artery disease status post recent mitral valve and aortic valve replacement, post surgical course complicated by left pleural effusion and congestive heart failure. Patient presented from manager configuration's office secondary to orthopnea and bilateral lower extremity edema. Left lung pleural effusion, recent aortic valve and mitral valve replacement -BNP only slightly elevated in the 180s. However, patient does have atrial fibrillation with RVR and this could be contributory. -Patient also has CLL which could be contributory as well. -We will hold off on Eliquis for now. Status post thoracentesis, 2 L taken out , follow-up results. Cardiomyopathy reportedly seen on echocardiogram at cardiology office Cardiology consulted, awaiting results of echocardiogram from Dr. Archer's office. -Atrial fibrillation with RVR. IV Cardizem as needed. Controlled, continue metoprolol. Cardiology consult pending. Diabetes mellitus- With sugars in the 200s. Start on diabetic diet and insulin sliding scale. Chronic kidney disease - Creatinine 1.7 from what appears to be baseline of 1.4 in July of this year. Uncertain etiology. Could be secondary to atrial fibrillation with RVR. Creatinine stable. DVT prophylaxis. SCDs. Start Eliquis tomorrow if okay with pulmonary. Discharge over the weekend once cleared by cardiology.
[2018-01-19] MEDS: predniSONE 10 MG Tablet PO SCH (09:30)
[2018-01-19] MEDS: Metoprolol Tartrate 50 MG Tablet PO SCH ×2 (09:31→21:19)
--- NOTE | 2018-01-19 09:40 | MB ---
cc: Wyatt Gurrola MD, Joshua A MD DATE: 01/19/2018 REASON FOR CONSULTATION: Atrial fibrillation, congestive heart failure. HISTORY OF PRESENT ILLNESS: The patient is a 72-year-old white male, followed in our office by Dr. Eric Archer, with a history of multiple medical problems including paroxysmal atrial fibrillation, diabetes, valvular disease, status post recent aortic valve replacement and redo mitral valve replacement in [place], severe pulmonary hypertension, moderately severe nondilated cardiomyopathy, who was sent to the emergency department from our office due to elevated heart rates as well as a large left pleural effusion seen incidentally on echocardiogram. The patient has been having mild dyspnea on exertion ever since his discharge from the hospital 2 weeks ago. He also reports mild to moderate pedal edema. The patient denies angina, dizziness, syncope, near syncope, paroxysmal nocturnal dyspnea. At times, he does feel rapid pounding palpitations. He reports being started on apixaban about 8 days ago. Initially, he had been mistakenly taking it only once a day. PAST MEDICAL HISTORY: 1. Paroxysmal atrial fibrillation, dating back to 2003 with recent recurrence about a week ago. 2. Diabetes. 3. Hyperlipidemia. 4. 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 He is also status post redo bioprosthetic mitral valve replacement as well as an aortic valve replacement last month in [place]. 5. Hypertension. 6. Severe pulmonary hypertension demonstrated by right heart catheterization 07/18/2017 with a pulmonary pressure of 70/25. 7. Nonischemic cardiomyopathy with ejection fraction of 35% to 40% by echocardiogram 01/18/2018. 8. Chronic lymphocytic leukemia. CARDIAC MEDICATIONS AT HOME: 1. Apixaban 5 mg b.i.d. 2. Furosemide 20 mg b.i.d. 3. Hydralazine 25 mg q.i.d. 4. Lisinopril 2.5 mg daily. 5. Simvastatin 20 mg at bedtime. ALLERGIES: HALDOL, SCALLOPS. FAMILY HISTORY: Noncontributory. SOCIAL HISTORY: The patient denies any history of alcohol or tobacco abuse. REVIEW OF SYSTEMS: As in history of present illness, otherwise negative or noncontributory. He also denies headache, abdominal pain, melena, dyspepsia, bright red blood per rectum, fevers. PHYSICAL EXAMINATION: VITAL SIGNS: His blood pressure 120/74 with a pulse of 130, respirations 15. GENERAL: He is a well-developed, well-nourished white male, in no acute distress. NECK: Jugular venous pressure is normal. Carotid pulses are 2+ bilaterally and without bruits. CHEST: Reveals diminished breath sounds in the left lung azul. CARDIAC: He has a tachycardic irregular rhythm without definite S3 or murmur. ABDOMEN: He has a soft, nontender abdomen. Bowel sounds are present. There is no definite hepatosplenomegaly. EXTREMITIES: Reveal no clubbing or cyanosis. There is 1+ pretibial edema bilaterally. EKG shows probable atrial tachycardia with 2:1 AV conduction, left axis deviation, nonspecific intraventricular conduction delay. LABORATORY DATA: Includes WBC 11.7, hemoglobin 10.9, platelets 216. INR 1.1. Potassium 4.3, BUN 51, creatinine 1.73. Troponin less than 0.02. Brain natriuretic peptide level of 183. Chest x-ray shows large left pleural effusion. IMPRESSION: Atrial fibrillation, atrial tachycardia with rapid heart rates, congestive heart failure in a 72-year-old white male status post recent aortic valve replacement and redo mitral valve replacement in [place], history of diabetes, severe pulmonary hypertension, ejection fraction 35%-40% by echocardiogram yesterday, chronic lymphocytic leukemia. He has had fluctuating heart rates. At the present time, at rest, his heart rate is 120-130. For the most part, he has been minimally symptomatic with the atrial fibrillation. Chest x-ray does show a large left pleural effusion. The etiology of his cardiomyopathy is not entirely clear. It may be tachycardia-mediated. He did have a nuclear stress test earlier this year which was normal, showing an ejection fraction greater than 70%. RECOMMENDATIONS: 1. Agree with holding apixaban in anticipation of thoracentesis; however, if it cannot be done in the next 2 days would initiate heparin drip. 2. Agree with metoprolol, given his reduced ejection fraction, increased dosing as tolerated. No CLEVE inhibitor or angiotensin receptor avelina at this time given his renal insufficiency. 3. Continue IV furosemide diuresis. MD MIRIAN Guevara/jatin , 08:56 AM , 09:05 AM LESLI
[2018-01-19] MEDS: Insulin NovoLOG Aspart Correctional Sugar Inj SQ SCH ×4 (10:17→21:20)
[2018-01-19 12:02] LABS: Baso # (Auto) 0.1 th/mm3 (0.0-0.2); Baso % (Auto) 0.8 % (0.0-2.0); Eos # (Auto) 0.1 th/mm3 (0.0-0.4); Eos % (Auto) 0.6 % (0.0-4.0); Hematocrit 33.6 % (39.0-51.0); Hemoglobin 11.3 gm/dL (13.0-17.0); Lymph # (Auto) 3.6 th/mm3 (1.0-4.8); Lymph % (Auto) 44.9 % (9.0-44.0); Mean Corpuscular HGB Conc 33.8 % (32.0-36.0); Mean Corpuscular Hemoglobin 31.3 pg (27.0-34.0); Mean Corpuscular Volume 92.7 fL (80.0-100.0); Mean Platelet Volume 7.4 fL (7.0-11.0); Mono # (Auto) 0.1 th/mm3 (0.0-0.9); Mono % (Auto) 1.1 % (0.0-8.0); Neut # (Auto) 4.2 th/mm3 (1.8-7.7); Neut % (Auto) 52.6 % (16.0-70.0); Platelet Count 200 th/mm3 (150-450); Red Blood Count 3.62 mil/mm3 (4.50-5.90)
[2018-01-19 12:25] LABS: Calcium 8.4 mg/dL (8.5-10.1); Carbon Dioxide 26.6 meq/L (21.0-32.0); Potassium 4.2 meq/L (3.5-5.1)
--- NOTE | 2018-01-19 13:38 | MP ---
cc: Joseph Beckett MD DATE OF OPERATION: 01/19/2018 PROCEDURE PERFORMED: Left thoracentesis. PREOPERATIVE DIAGNOSIS: Left pleural effusion. POSTOPERATIVE DIAGNOSIS: Left pleural effusion. ANESTHESIA: Xylocaine 1% local. SURGEON: Joseph Beckett MD PROCEDURE AND FINDINGS: The patient's left posterior back was prepped with chlorhexidine solution, following which sterile drapes were applied. Xylocaine 1% was then injected in the intercostal space in the posterior axillary line, after which a small incision was made with a scalpel blade. Following this, a 14 gauge catheter was inserted in the pleural space. This was connected to a vacuum bottle. Approximately 2200 mL of blood-stained fluid was aspirated, at which time the flow stopped. The patient tolerated the procedure well. Joseph Beckett MD VJD/jl , 01:07 PM , 01:13 PM
--- NOTE | 2018-01-19 13:41 | XR ---
EXAM DATE: 01/19/2018 1:33 PM EST AGE/SEX: 72 years / Male INDICATIONS: Post left side thoracentesis CLINICAL DATA: This is the patient's initial encounter. Patient reports that signs and symptoms have been present for 3 days and indicates a pain score of 0/10. MEDICAL/SURGICAL HISTORY: Hypertension. a-fib, diabetes . aortic and mitral valve replacements COMPARISON: [facility], CHEST 1V SINGLE AP, 01/18/2018. . FINDINGS: Significantly improved left-sided pleural effusion with residual small left pleural effusion and asso ciated left lower lobe airspace disease. No significant pneumothorax. Cardiomediastinal contours are stable. Remainder of the exam is unchanged. CONCLUSION: 1. Significantly improved left-sided pleural effusion following thoracentesis with small residual fl uid and airspace disease in the left lower lobe. 2. No pneumothorax. Electronically signed by: Chris John MD 01/19/2018 1:40 PM EST
[2018-01-19 14:33] LABS: Basophils,Pleural Fluid 1 %; Eosinophils,Pleural Fluid 2 %; Lymphocytes,Pleural Fluid 75 %; Monocytes,Pleural Fluid 1 %; Neutrophils,Pleural Fluid 20 %; RBC,Pleural Fluid 207805 /mm3 (0-0)
[2018-01-19 14:37] LABS: Total Protein,Pleural Fluid 3.9 gm/dL
--- NOTE | 2018-01-19 15:32 | ECG ---
Date Performed: 01/18/2018 Time Performed: 17:16:13 PTAGE: 72 years EKG: ATRIAL FLUTTER/TACHYCARDIA WITH RAPID VENTRICULAR RESPONSE MARKED LEFT AXIS DEVIATION MODER ATE INTRAVENTRICULAR CONDUCTION DELAY Compared to previous tracing the atrial tachycardia is new ABNO RMAL ECG PREVIOUS TRACING : 07/18/2017 14.19 DOCTOR: Dakota Phan Interpretating Date/Time 01/19/2018 15:31:30
[2018-01-19 23:48] VITALS: RESP 18
[2018-01-20 06:52] LABS: Carbon Dioxide 26.5 meq/L (21.0-32.0); Potassium 4.3 meq/L (3.5-5.1)
[2018-01-20] MEDS: Insulin NovoLOG Aspart Correctional Sugar Inj SQ SCH (08:20)
[2018-01-20] MEDS: predniSONE 10 MG Tablet PO SCH (08:21)
[2018-01-20] MEDS: Metoprolol Tartrate 50 MG Tablet PO SCH (08:21)
[2018-01-20 08:45] VITALS: BP 96/53; TEMP 97.6; O2SAT 99
[2018-01-20] MEDS ORDERED: Furosemide 20 MG Tablet PO SCH (09:15)
--- NOTE | 2018-01-20 09:58 | P.PNCA ---
Subjective Interval history: Feels well. No CP, dyspnea, PND, dizziness, palpitations. Medications and Allergies Active Medications: Active Medications Acetaminophen (Tylenol) 650 mg PO Q4H PRN PRN Reason: Temp > 100.4 Last Admin: 01/19/18 09:31 Dose: 325 mg Hydrocodone Bitart/Acetaminophen ([place] 5/325) 1 tab PO Q6H PRN PRN Reason: PAIN 1-10 Last Admin: 01/20/18 02:02 Dose: 1 tab Bisacodyl (Dulcolax Supp) 10 mg RECTAL DAILY PRN PRN Reason: SEVERE CONSITIPATION Dextrose (D50w Vial) 50 ml IV.PUSH UNSCH PRN PRN Reason: PER HYPOGLYCEMIA PROTOCOL Furosemide (Lasix) 20 mg PO BID@0900,1800 [facility] Last Admin: 01/20/18 09:28 Dose: 20 mg Glucagon (Glucagon Inj) 1 mg OTHER PRN PRN PRN Reason: for Hypoglycemia Protocol Insulin Aspart (Novolog Insulin Correctional Sugar Inj) [address] [facility]; Protocol Last Admin: 01/20/18 08:20 Dose: 3 unit Metoprolol Tartrate (Lopressor) 100 mg PO BID [facility] Last Admin: 01/20/18 08:21 Dose: 100 mg Pravastatin Sodium (Pravachol) 40 mg PO DAILY@1800 [facility] Last Admin: 01/19/18 21:19 Dose: 40 mg Prednisone (Deltasone) 10 mg PO DAILY [facility] Last Admin: 01/20/18 08:21 Dose: 10 mg Sennosides (Senokot) 17.2 mg PO Q12H PRN PRN Reason: Moderate Constipation Allergies Allergy/AdvReac Type Severity Reaction Status Date / Time haloperidol Allergy Severe Hallucinati Verified 01/18/18 17:30 ons scallops Allergy Severe Hives Verified 01/18/18 18:01 Home Medications Medication Instructions Recorded Confirmed Type apixaban [Eliquis] 5 mg PO BID 01/18/18 01/18/18 History azithromycin 250 mg PO DAILY 01/18/18 01/18/18 History furosemide [Lasix] 20 mg PO BID 01/18/18 01/18/18 History glipizide 10 mg PO DAILY 01/18/18 01/18/18 History hydralazine 25 mg PO QID 01/18/18 01/18/18 History insulin lispro [Humalog U-100 4 unit SUBCUT TID 01/18/18 01/18/18 History Insulin] lisinopril 2.5 mg PO DAILY 01/18/18 01/18/18 History metformin 1,000 mg PO BID 01/18/18 01/18/18 History prednisone 10 mg PO DAILY 01/18/18 01/18/18 History simvastatin 20 mg PO QPM 01/18/18 01/18/18 History Physical Exam Vital signs: Vital Signs 01/19/18 10:00 01/19/18 10:20 01/19/18 11:00 Temperature Pulse Rate 136 H 82 Respiratory Rate 18 18 Blood Pressure 109/66 Pulse Oximetry 98 01/19/18 12:00 01/19/18 12:28 01/19/18 13:00 Temperature Pulse Rate 88 90 Respiratory Rate Blood Pressure Pulse Oximetry 95 01/19/18 13:05 01/19/18 13:20 01/19/18 13:35 Temperature Pulse Rate 90 96 H 88 Respiratory Rate 20 20 20 Blood Pressure 116/72 111/71 111/69 Pulse Oximetry 96 96 96 01/19/18 14:00 01/19/18 15:00 01/19/18 16:00 Temperature Pulse Rate 88 90 90 Respiratory Rate 20 Blood Pressure 111/64 Pulse Oximetry 97 01/19/18 17:00 01/19/18 17:02 01/19/18 18:00 Temperature Pulse Rate 78 80 Respiratory Rate Blood Pressure Pulse Oximetry 97 01/19/18 19:00 01/19/18 20:00 01/19/18 20:50 Temperature 98.9 F Pulse Rate 81 89 88 Respiratory Rate 18 Blood Pressure 112/59 L Pulse Oximetry 99 01/19/18 21:00 01/19/18 23:00 01/20/18 00:00 Temperature 98.6 F Pulse Rate 88 88 66 Respiratory Rate 18 Blood Pressure 118/60 Pulse Oximetry 98 01/20/18 01:00 01/20/18 03:00 01/20/18 04:00 Temperature 97.5 F L Pulse Rate 64 64 74 Respiratory Rate 18 Blood Pressure 100/66 Pulse Oximetry 96 01/20/18 05:00 01/20/18 06:00 01/20/18 07:00 Temperature 97.6 F Pulse Rate 86 86 97 H Respiratory Rate 18 Blood Pressure 96/53 L Pulse Oximetry 99 01/20/18 08:00 01/20/18 09:00 Temperature Pulse Rate 93 H 87 Respiratory Rate Blood Pressure Pulse Oximetry 99 Intake & Output 01/19/18 01/20/18 01/20/18 18:59 06:59 18:59 Intake Total 820 / 820 400 / 400 Balance 820 / 820 400 / 400 Weight 76 kg Intake: Oral 820 / 820 400 / 400 Other: # Voids 4 4 Date of Last Bowel Movement 01/18/18 01/18/18 - Constitutional no acute distress - Routine Neck Exam Absent: JVD - Routine Respiratory Exam Present: CTA bilaterally - Routine Cardiovascular Exam Present: RRR, S1, S2. Absent: gallop Comments: I/ fairly diffuse systolic murmur. Normal S2. - Routine Abdominal Exam Present: soft, normoactive bowel sounds. Absent: tenderness, organomegaly - Routine Extremities Exam Absent: cyanosis, clubbing, edema Results 01/19/18 11:36 01/20/18 04:49 Cardiac Enzymes 01/18/18 01/18/18 Range/Units 16:30 16:30 AST 20 (15-37) U/L Troponin I Less than 0.02 L (0.02-0.05) ng/mL B-Natriuretic Peptide 183 H (0-100) pg/mL Coagulation 01/18/18 01/18/18 Range/Units 16:30 20:57 PT 11.4 (9.8-11.6) sec B-Natriuretic Peptide 183 H (0-100) pg/mL CBC 01/18/18 01/19/18 Range/Units 18:30 11:36 WBC 11.7 H 8.0 (4.0-11.0) th/mm3 RBC 3.45 L 3.62 L (4.50-5.90) mil/mm3 Hgb 10.9 L 11.3 L (13.0-17.0) gm/dL Hct 31.7 L 33.6 L (39.0-51.0) % Plt Count 216 200 (150-450) th/mm3 Neut # (Auto) 5.2 4.2 (1.8-7.7) th/mm3 Lymph # (Auto) 6.2 H 3.6 (1.0-4.8) th/mm3 [place] # (Auto) 0.2 0.1 (0.0-0.9) th/mm3 Eos # (Auto) 0.1 0.1 (0.0-0.4) th/mm3 Baso # (Auto) 0.1 0.1 (0.0-0.2) th/mm3 Comprehensive Metabolic Panel 01/18/18 01/19/18 01/20/18 Range/Units 16:30 11:36 04:49 Sodium 134 L 137 136 (136-145) meq/L Potassium 4.3 4.2 4.3 (3.5-5.1) meq/L Chloride 97 L 100 102 (98-107) meq/L Carbon Dioxide 25.5 26.6 26.5 (21.0-32.0) meq/L BUN 51 H 39 H 38 H (7-18) mg/dL Creatinine 1.73 H 1.41 H 1.23 (0.60-1.30) mg/dL Calcium 8.7 8.4 L 8.0 L (8.5-10.1) mg/dL AST 20 (15-37) U/L ALT 16 (12-78) U/L Alkaline Phosphatase 87 (45-117) U/L Total Protein 7.5 (6.4-8.2) g/dL Albumin 3.3 L (3.4-5.0) g/dL Intake and Output 01/19/18 01/20/18 01/20/18 22:59 06:59 14:59 Intake Total 820 / 820 400 / 400 Balance 820 / 820 400 / 400 Intake: Oral 820 / 820 400 / 400 Other: # Voids 4 4 Date of Last Bowel Movement 01/18/18 01/18/18 Weight 76 kg - Imaging and Cardiology Imaging: Impressions Chest X-Ray 01/18/18 16:27 CONCLUSION: Large left-sided pleural effusion. Chest X-Ray 01/19/18 00:00 CONCLUSION: 1. Significantly improved left-sided pleural effusion following thoracentesis with small residual fluid and airspace disease in the left lower lobe. 2. No pneumothorax. Assessment and Plan - Assessment (1) Paroxysmal atrial fibrillation Code(s): I48.0 - Paroxysmal atrial fibrillation Status: Acute Plan: Appears to be in more of an atrial flutter/tachycardia this morning. HR's under control. Patient asymptomatic. REC resume apixaban, continue metoprolol 100 mg bid, OK to discharge today from cardiac standpoint, consider ablation in the future (2) Nonischemic cardiomyopathy Code(s): I42.8 - Other cardiomyopathies Status: Acute Plan: Doing better s/p thoracentesis. EF 35-40% by recent echo. Pedal edema essentially resolved. Recommend continue beta avelina, no CLEVE-I or ARB with relatively low BP. (3) Valvular heart disease Code(s): I38 - Endocarditis, valve unspecified Status: Chronic Plan: Stable s/p recent AVR and redo MVR in [place]. Exam consistent with normal valvular function. (4) Hypertension Code(s): I10 - Essential (primary) hypertension Status: Chronic Plan: Stable. Normotensive. - Plan Code Status: full code Discussed Condition With: patient (4) Hypertension Qualifiers: Hypertension type: essential hypertension Qualified Code(s): I10 - Essential (primary) hypertension
[2018-01-20 10:06] VITALS: PULSE 65
--- NOTE | 2018-01-20 10:41 | P.DS ---
Date of admission: 01/18/18 18:42 Primary care physician: Saran Saini MD Brief History from admission: 72-year-old male with a history of atrial fibrillation, diabetes mellitus, CLL, CAD, status post aortic and mitral valve replacement on December 26 at [facility]. Perioperative course complicated by left pleural effusion which patient reports was drained during admission there. Patient was following up with cardiology today, Dr. Perez due to continued orthopnea, as well as continued bilateral lower extremity edema. Echocardiogram reportedly shows left pleural effusion as well as cardiomyopathy. Upon presentation here, patient found to be in A. fib with RVR which improved after IV diltiazem. Patient denies any chest pain. Reports shortness of breath is stable. Denies any fevers or chills. He says he has been on a azithromycin for several days prescribed by pulmonology without improvement. Patient reports being started on Eliquis several days ago. DS: Summary Hospital Course: While in hospital, patient was treated for Left lung pleural effusion Status post thoracentesis Appreciate input from pulmonary medicine Follow-up chest x-ray stable Resume Lasix Paroxysmal A. fib with RVR Currently rate controlled Eliquis restarted and treated with beta-avelina May need ablation in the future Appreciate input from cardiology Cardiomyopathy Treated with beta-avelina, however CLEVE inhibitor or is contraindicated secondary to hypertension Diabetes mellitus Treated with insulin sliding scale. Resume home medication on discharge Chronic kidney disease - Creatinine 1.7 from what appears to be baseline of 1.4 in July of this year. Uncertain etiology. Could be secondary to atrial fibrillation with RVR. Creatinine stable. - Time Spent with Patient Total time spent providing and/or coordinating discharge services: Less than 30 minutes - Quality: VTE Deep Vein Thrombosis/Pulmonary Embolism Present on Admission: No Exam Vital signs: Vital Signs 01/19/18 11:00 01/19/18 12:00 01/19/18 12:28 Temperature Pulse Rate 82 88 Respiratory Rate 18 Blood Pressure 109/66 Pulse Oximetry 98 95 01/19/18 13:00 01/19/18 13:05 01/19/18 13:20 Temperature Pulse Rate 90 90 96 H Respiratory Rate 20 20 Blood Pressure 116/72 111/71 Pulse Oximetry 96 96 01/19/18 13:35 01/19/18 14:00 01/19/18 15:00 Temperature Pulse Rate 88 88 90 Respiratory Rate 20 20 Blood Pressure 111/69 111/64 Pulse Oximetry 96 97 01/19/18 16:00 01/19/18 17:00 01/19/18 17:02 Temperature Pulse Rate 90 78 Respiratory Rate Blood Pressure Pulse Oximetry 97 01/19/18 18:00 01/19/18 19:00 01/19/18 20:00 Temperature 98.9 F Pulse Rate 80 81 89 Respiratory Rate 18 Blood Pressure 112/59 L Pulse Oximetry 99 01/19/18 20:50 01/19/18 21:00 01/19/18 23:00 Temperature Pulse Rate 88 88 88 Respiratory Rate Blood Pressure Pulse Oximetry 01/20/18 00:00 01/20/18 01:00 01/20/18 03:00 Temperature 98.6 F Pulse Rate 66 64 64 Respiratory Rate 18 Blood Pressure 118/60 Pulse Oximetry 98 01/20/18 04:00 01/20/18 05:00 01/20/18 06:00 Temperature 97.5 F L Pulse Rate 74 86 86 Respiratory Rate 18 Blood Pressure 100/66 Pulse Oximetry 96 01/20/18 07:00 01/20/18 08:00 01/20/18 09:00 Temperature 97.6 F Pulse Rate 97 H 93 H 87 Respiratory Rate 18 Blood Pressure 96/53 L Pulse Oximetry 99 99 01/20/18 10:00 Temperature Pulse Rate 65 Respiratory Rate Blood Pressure Pulse Oximetry Intake & Output 01/19/18 01/20/18 01/20/18 18:59 06:59 18:59 Intake Total 820 / 820 400 / 400 Balance 820 / 820 400 / 400 Weight 76 kg Intake: Oral 820 / 820 400 / 400 Other: # Voids 4 4 Date of Last Bowel Movement 01/18/18 01/18/18 Narrative: GENERAL: NAD SKIN: Warm and dry. HEAD: Normocephalic. EYES: No scleral icterus. No injection or drainage. NECK: Supple, trachea midline. No JVD or lymphadenopathy. CARDIOVASCULAR: Regular rate and rhythm without murmurs, gallops, or rubs. RESPIRATORY: Breath sounds equal bilaterally. No accessory muscle use. GASTROINTESTINAL: Abdomen soft, non-tender, nondistended. MUSCULOSKELETAL: No cyanosis, or edema. BACK: Nontender without obvious deformity. No CVA tenderness. Results Procedures completed during hospitalization: s/p Left lung thoracentesis Labs on day of discharge: Labs from last 24 hours 01/20/18 01/20/18 01/19/18 07:58 04:49 20:53 WBC RBC Hgb Hct MCV MCH MCHC RDW Plt Count MPV Neut % (Auto) Lymph % (Auto) [place] % (Auto) Eos % (Auto) Baso % (Auto) Neut # (Auto) Lymph # (Auto) [place] # (Auto) Eos # (Auto) Baso # (Auto) WBC Differential Differential Comment Sodium 136 Potassium 4.3 Chloride 102 Carbon Dioxide 26.5 Anion Gap 8 BUN 38 H Creatinine 1.23 Estimated GFR 58 L POC Glucose 214 H 339 H Random Glucose 185 H Calcium 8.0 L Magnesium Pleural pH Pleural RBC Pleural Nuc Cells Pleural Neutrophils Pleural Lymphocytes Pleural Monocytes Pleural Eosinophils Pleural Basophils Pleural Histocytes Pleural Total Protein Pleural LDH Pleural Glucose Pleural Amylase 01/19/18 01/19/18 01/19/18 16:29 16:27 13:42 WBC RBC Hgb Hct MCV MCH MCHC RDW Plt Count MPV Neut % (Auto) Lymph % (Auto) [place] % (Auto) Eos % (Auto) Baso % (Auto) Neut # (Auto) Lymph # (Auto) [place] # (Auto) Eos # (Auto) Baso # (Auto) WBC Differential Differential Comment Sodium Potassium Chloride Carbon Dioxide Anion Gap BUN Creatinine Estimated GFR POC Glucose 409 H 406 H 174 H Random Glucose Calcium Magnesium Pleural pH Pleural RBC Pleural Nuc Cells Pleural Neutrophils Pleural Lymphocytes Pleural Monocytes Pleural Eosinophils Pleural Basophils Pleural Histocytes Pleural Total Protein Pleural LDH Pleural Glucose Pleural Amylase 01/19/18 01/19/18 01/19/18 13:15 13:15 11:36 WBC RBC Hgb Hct MCV MCH MCHC RDW Plt Count MPV Neut % (Auto) Lymph % (Auto) [place] % (Auto) Eos % (Auto) Baso % (Auto) Neut # (Auto) Lymph # (Auto) [place] # (Auto) Eos # (Auto) Baso # (Auto) WBC Differential Differential Comment Sodium Potassium Chloride Carbon Dioxide Anion Gap BUN Creatinine Estimated GFR POC Glucose Random Glucose Calcium Magnesium 2.0 Pleural pH 8.0 Pleural RBC 831887 H Pleural Nuc Cells 1392 H Pleural Neutrophils 20 Pleural Lymphocytes 75 Pleural Monocytes 1 Pleural Eosinophils 2 Pleural Basophils 1 Pleural Histocytes 1 Pleural Total Protein 3.9 Pleural LDH 416 Pleural Glucose 191 Pleural Amylase 27 01/19/18 01/19/18 11:36 11:36 WBC 8.0 RBC 3.62 L Hgb 11.3 L Hct 33.6 L MCV 92.7 MCH 31.3 MCHC 33.8 RDW 17.0 Plt Count 200 MPV 7.4 Neut % (Auto) 52.6 Lymph % (Auto) 44.9 H [place] % (Auto) 1.1 Eos % (Auto) 0.6 Baso % (Auto) 0.8 Neut # (Auto) 4.2 Lymph # (Auto) 3.6 [place] # (Auto) 0.1 Eos # (Auto) 0.1 Baso # (Auto) 0.1 WBC Differential . Differential Comment Auto diff final Sodium 137 Potassium 4.2 Chloride 100 Carbon Dioxide 26.6 Anion Gap 10 BUN 39 H Creatinine 1.41 H Estimated GFR 50 L POC Glucose Random Glucose 181 H D Calcium 8.4 L Magnesium Pleural pH Pleural RBC Pleural Nuc Cells Pleural Neutrophils Pleural Lymphocytes Pleural Monocytes Pleural Eosinophils Pleural Basophils Pleural Histocytes Pleural Total Protein Pleural LDH Pleural Glucose Pleural Amylase - Impressions ITS Impressions Chest X-Ray 01/19/18 00:00 CONCLUSION: 1. Significantly improved left-sided pleural effusion following thoracentesis with small residual fluid and airspace disease in the left lower lobe. 2. No pneumothorax. Discharge Plan - Discharge Disposition Patient Disposition: 01 Discharge Home - Discharge Condition Condition: Fair - Discharge Order Discharge Orders: Discharge Order (Routine); Ordered 01/20/18 Ordered By: Cayden Gilliland Cardiology Clear for Discharge (Routine); Ordered 01/20/18 Ordered By: Wyatt Gurrola - Discharge Details Anticipated Discharge Date: 01/18/18 - Physicians Team Primary Care Provider: Saran Saini V Attending Provider: Cayden Gilliland Other Providers: Eric Archer MD ; Arcenio Iniguez MD
--- NOTE | 2018-01-20 15:24 | MB ---
cc: Joseph Beckett MD DATE: 01/19/2018 REASON FOR CONSULTATION: Pleural effusion. HISTORY OF PRESENT ILLNESS: This is a 72-year-old man with a past history of diabetes mellitus, coronary artery disease, history of aortic valve stenosis and atrial fibrillation. Recently had an aortic valve replacement on 12/26/2017 which was done at [facility] in [place]. Postoperatively, the patient did have a left pleural effusion, which was drained and he was subsequently discharged for outpatient followup. The patient was home for 2 weeks and has been experiencing some cough, chest congestion, wheezing and difficulty in lying flat. Chest x-ray done over the past 2 weeks, had shown a small effusion, but he became more short of breath over the past 2 days and thus came to the emergency room. The patient was noted to be in atrial fibrillation with a rapid ventricular response and a chest x-ray showed a large left pleural effusion. He was on Zithromax previously with no significant relief and in his cold and chest congestion and has been on oral Eliquis due to his atrial fibrillation. Denied fevers, chills, night sweats or hemoptysis. PAST MEDICAL HISTORY: As mentioned above, significant for cardiomyopathy, atrial fibrillation, diabetes, history of aortic valve replacement and mitral valve replacement. The patient has had previous history for mitral valve replacement. He also has a history for chronic lymphocytic leukemia. HABITS: The patient does not smoke. There was no significant alcohol use. FAMILY HISTORY: Father had colon cancer. Mother had chronic myeloid leukemia. MEDICATIONS: List was reviewed. REVIEW OF SYSTEMS: The patient has lost weight, he has leg swelling. He has chest tightness and orthopnea. He has epigastric distress and reflux. Denies urinary symptoms. No headaches or blackout spells. He has no depression or anxiety. PHYSICAL EXAMINATION: GENERAL: This is an averagely built, elderly man who is alert, pale, but no acute distress. VITAL SIGNS: Blood pressure 130/80, pulse is 120, respirations 24, temperature 97.5. HEENT: Head is normocephalic. Pupils are reactive and equal. Tongue is moist. Throat was mildly injected. NECK: Supple with mild venous distention while sitting upright. No thyromegaly. CHEST: Decreased excursions on the left with dullness over the left mid and lower chest. Occasional wheezes anteriorly. Breath sounds are diminished over the left chest. HEART: Sounds are irregularly irregular, S1 and S2. No murmur. ABDOMEN: Soft, nontender. No organomegaly. Bowel sounds are active. EXTREMITIES: No lesions. Minimal edema, normal reflexes with no gross motor or sensory deficits. IMPRESSION: 1. Large left pleural effusion with compressive atelectasis, left base. 2. Atrial fibrillation with rapid ventricular response. 3. Status post aortic valve replacement. 4. Left basilar atelectasis. 5. Chronic kidney disease. 6. Cardiomyopathy. PLAN: The patient will be continued on Cardizem per cardiology. We will have a thoracentesis planned for the left side. The risks of thoracentesis including bleeding, pneumothorax were explained to him and I will also use 2 liters of oxygen nasal cannula p.r.n. and nebulized Atrovent solution q.i.d. p.r.n. Following thoracentesis, a chest x-ray will be obtained. Thank you Dr. Watson for this consultation. Joseph Beckett MD VJD/ct , 02:41 PM , 02:54 PM
== END 2018-01-20 12:08 | disposition home or self-care (01) ==
LOC: NEPC 16:07 → NEDA 18:42 → HCIS 22:28
PROVIDERS: ADMIT Hospitalist; ATTEND Hospitalist